=== PATIENT | female | born 1980 | race Caucasian/White ===

== ENCOUNTER 2023-04-27 11:31 | Outpatient (OUT) | payer OTHER, SELFPAY ==
[2023-04-27 11:51] LABS: Basophils Absolute Auto 0.1 10^3/uL (0.0-0.1); Basophils Percent Auto 0.8 % (0.2-2.0); Eosinophils Percent Auto 0.3 % (0.9-7.0); Hematocrit 43.5 % (36.0-48.0); Hemoglobin 14.3 g/dL (12.0-16.0); Immature Granulocytes Abs Auto 0.02 10^3/uL (0.00-0.03); Immature Granulocytes Pct Auto 0.3 % (0.0-0.5); Lymphocytes Absolute Auto 1.5 10^3/uL (1.2-3.8); Mean Corpuscular HGB Conc 32.9 g/dL (29.9-35.2); Mean Corpuscular Volume 94.4 fL (81.0-99.0); Mean Platelet Volume 10.3 fL (9.5-13.5); Monocytes Absolute Auto 0.4 10^3/uL (0.3-0.8); Monocytes Percent Auto 7.4 % (1.7-12.0); Neutrophils Absolute Auto 3.9 10^3/uL (1.4-6.5); Neutrophils Percent Auto 65.2 % (43.0-75.0); Platelet Count 166 10^3/uL (150-450); Red Blood Count 4.61 10^6/uL (4.20-5.40); Red Cell Distribution Width 12.6 % (11.0-15.0); White Blood Count 5.9 10^3/uL (4.0-11.0)
[2023-04-27 12:19] LABS: Estimated Average Glucose 80 mg/dL; Glycohemoglobin A1C 4.4 % (4.5-6.2)
[2023-04-27 13:17] LABS: Alanine Aminotransferase 22 U/L (14-59); Albumin Globulin Ratio 0.9; Albumin Level 3.6 g/dL (3.4-5.0); Alkaline Phosphatase 72 U/L (46-116); Anion Gap 12.8; Aspartate Amino Transferase 16 U/L (15-37); BUN Creatinine Ratio 19.6; Carbon Dioxide 26.7 mmol/L (21.0-32.0); Chloride 103 mmol/L (98-107); Chol HDL Ratio 2.3; Cholesterol 204 mg/dL (<=200); Estimated GFR (African America >60 (>=60); Estimated GFR (Non-African Ame >60 (>=60); Free T4 1.25 ng/dL (0.76-1.46); Globulin 3.9 g/dL; Glucose 106 mg/dL (74-106); HDL Cholesterol 89 mg/dL (40-60); Potassium 4.5 mmol/L (3.5-5.1); Sodium 138 mmol/L (136-145); Thyroid Stimulating Hormone <0.007 uIU/mL (0.358-3.740); Total Protein 7.5 g/dL (6.4-8.2); Triglycerides 74 mg/dL (<=150); VLDL CHOLESTEROL 14.8 mg/dL
== END 2023-04-27 11:32 ==
LOC: LAB 11:32
PROVIDERS: PCP Family Medicine; Visit Provider Family Medicine
DX: Z00.00 Encounter for general adult medical examination without abnormal findings (principal)
CPT/HCPCS: 36415; 80053; 80061; 83036; 84439; 84443; 85025

== ENCOUNTER 2024-04-22 08:16 | Outpatient (OUT) | payer OTHER, SELFPAY ==
[2024-04-22 09:06] LABS: Estimated Average Glucose 103 mg/dL; Glycohemoglobin A1C 5.2 % (4.5-6.2)
[2024-04-22 09:40] LABS: Basophils Percent Auto 0.5 % (0.2-2.0); Eosinophils Absolute Auto 0.2 10^3/uL (0.0-0.7); Eosinophils Percent Auto 3.1 % (0.9-7.0); Hematocrit 39.2 % (36.0-48.0); Hemoglobin 12.8 g/dL (12.0-16.0); Immature Granulocytes Abs Auto 0.01 10^3/uL (0.00-0.03); Immature Granulocytes Pct Auto 0.2 % (0.0-0.5); Lymphocytes Absolute Auto 1.8 10^3/uL (1.2-3.8); Lymphocytes Percent Auto 30.6 % (20.5-60.0); Mean Corpuscular HGB Conc 32.7 g/dL (29.9-35.2); Mean Corpuscular Hemoglobin 29.6 pg (26.7-34.0); Mean Corpuscular Volume 90.7 fL (81.0-99.0); Mean Platelet Volume 11.7 fL (9.5-13.5); Monocytes Absolute Auto 0.5 10^3/uL (0.3-0.8); Monocytes Percent Auto 8.2 % (1.7-12.0); Neutrophils Absolute Auto 3.3 10^3/uL (1.4-6.5); Neutrophils Percent Auto 57.4 % (43.0-75.0); Platelet Count 164 10^3/uL (150-450); Red Blood Count 4.32 10^6/uL (4.20-5.40); Red Cell Distribution Width 12.3 % (11.0-15.0); White Blood Count 5.8 10^3/uL (4.0-11.0)
[2024-04-22 09:42] LABS: Alanine Aminotransferase 33 U/L (14-59); Albumin Level 3.6 g/dL (3.4-5.0); Alkaline Phosphatase 77 U/L (46-116); Anion Gap 15.4; Aspartate Amino Transferase 25 U/L (15-37); BUN Creatinine Ratio 18.2; Bilirubin Total 0.5 mg/dL (0.2-1.0); Calcium 8.1 mg/dL (8.5-10.1); Carbon Dioxide 25.4 mmol/L (21.0-32.0); Chloride 104 mmol/L (98-107); Chol HDL Ratio 2.1; Cholesterol 164 mg/dL (<=200); Estimated GFR (African America >60 (>=60); Estimated GFR (Non-African Ame >60 (>=60); Free T3 4.78 pg/mL (2.18-3.98); Globulin 3.6 g/dL; Glucose 98 mg/dL (74-106); HDL Cholesterol 77 mg/dL (40-60); Potassium 3.8 mmol/L (3.5-5.1); Sodium 141 mmol/L (136-145); Thyroid Stimulating Hormone <0.007 uIU/mL (0.358-3.740); Total Protein 7.2 g/dL (6.4-8.2); Triglycerides 33 mg/dL (<=150); VLDL CHOLESTEROL 6.6 mg/dL
[2024-04-23 13:07] LABS: Insulin 10.2 uIU/mL (2.6-24.9)
== END 2024-04-22 08:17 | disposition home or self-care (01) ==
LOC: LAB 08:18
PROVIDERS: PCP Family Medicine; Visit Provider Family Medicine
DX: Z00.00 Encounter for general adult medical examination without abnormal findings (principal); E78.5 Hyperlipidemia, unspecified; R73.09 Other abnormal glucose; D64.9 Anemia, unspecified
CPT/HCPCS: 36415; 80053; 80061; 83036; 83525; 83540; 84436; 84443; 84481; 85025

== ENCOUNTER 2024-04-28 11:14 | Outpatient (OUT) | payer OTHER, SELFPAY ==
--- NOTE | 2024-04-28 11:17 | MM_ITS ---
Patient Name: KENTON CORLEY MR#: [id number] : 1980 Exam Date: 04/28/2024 Ordering Doctor: DR Cooper Reyes . RADIOLOGY REPORT PROCEDURE: MM TOMOSYNTHESIS SCREENING BI COMPARISON: MG MAMM SCREEN RADHA W CAD, 09/18/2020. INDICATIONS: Screening Calculator Name NCI Breast Cancer Risk Assessment Tool 5 Year Breast Cancer Risk 0.60% Lifetime Breast Cancer Risk 7.00% Personal Breast Cancer No Personal Ovarian Cancer No Treatments None Family Cancers None LOCATION: [facility] BREAST COMPOSITION: The breasts are heterogeneously dense,which may obscure small masses. FINDINGS: DIAGNOSTIC CATEGORY 0--INCOMPLETE: NEED ADDITIONAL IMAGING EVALUATION. Scattered benign-appearing calcifications are present. Scattered benign-appearing lymph nodes are present. RIGHT BREAST: New well-circumscribed oval 1.2 cm nodule is noted in the 12 o'clock mid breast. Spot imaging and ultrasound follow-up is recommended. LEFT BREAST: No significant suspicious finding. RECOMMENDATIONS: ADDITIONAL MAMMOGRAPHIC VIEWS REQUIRED: RIGHT BREAST - spot compression ULTRASOUND: RIGHT BREAST PLEASE NOTE: A NORMAL MAMMOGRAM DOES NOT EXCLUDE THE POSSIBILITY OF BREAST CANCER. A CLINICALLY SUSPICIOUS PALPABLE LUMP SHOULD BE BIOPSIED. Dictated by: Ken Patel MD on 04/28/2024 at 12:32 Approved by: Ken Patel MD on 04/28/2024 at 12:35
--- OUTSIDE RECORDS SUMMARY | 2024-04-28 11:34 | XMS_ITS | CCD ---
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 Role Phone MerlynmarisolSonja piña Unavailable MD Fernando Reyes Primary Care Provider [phone] SRINIVAS Altamirano Attending Provider [phone] LYRIC, DR KING Admitting Unavailable HOY, DR KING Attending Unavailable HOY, DR KING Primary Care Unavailable HOY, DR KING Consulting Unavailable HOY, DR KING Admitting Unavailable HOY, DR KING Attending Unavailable HOY, DR KING Primary Care Unavailable HOY, DR KING Consulting Unavailable HOY, DR KING Admitting Unavailable HOY, DR KING Attending Unavailable HOY, DR KING Primary Care Unavailable HOY, DR KING Consulting Unavailable HOY, DR KING Primary Care Unavailable PAY, DR IQBAL Admitting Unavailable PAY, DR IQBAL Attending Unavailable PAY, DR IQBAL Consulting Unavailable HERMESTRAY Consulting Unavailable NEFCY, JOSELINE Consulting Unavailable HOY, DR KING Primary Care Unavailable PAY, DR IQBAL Admitting Unavailable PAY, DR IQBAL Attending Unavailable DESTINY WILSON Consulting Unavailable LYRIC, DR KING Primary Care Unavailable BRANDIE, DR KENRICK Christensen Admitting Unavailabl e BRANDIE, DR KENRICK Christensen Attending Unavailabl peace MORALES, DR KEY Temple Consulting Unavailable BRANDIE, DR KENRICK Christensen Consulting Unavailabl e HOY, DR KING Admitting Unavailable HOY, DR KING Attending Unavailable HOY, DR KING Primary Care Unavailable HOY, DR KING Admitting Unavailable HOY, DR KING Attending Unavailable HOY, DR KING Primary Care Unavailable HOY, DR KING Admitting Unavailable HOY, DR KING Attending Unavailable HOY, DR KING Primary Care Unavailable HOY, DR KING Consulting Unavailable Janis Altamirano Attending Unavailable Evelia, Janis Admitting Unavailable Fernando Reyes Primary Care Unavailable Janis Altamirano Unavailable SamyRaya leon Unavailable Allergies Allergy Classification Reported Allergen(s) Allergy Type Date of Onset Reaction(s) Facility (1 source) methIMAzole Drug Allergy [facility] Rep[facility] Medications Current Medications Medication Drug Class(es) Dates Sig (Normalized) Sig (Original) methIMAzole (1 source) Thyroid Hormone Synthesis Inhibitor methIMAzole Active methylPREDNISolone 4 mg oral tablet (1 source) Corticosteroid Start: methylPREDNISolone 4 MG as directed Orally daily for 6 days Aug, Active Completed/Discontinued Medications Medication Drug Class(es) Dates Sig (Normalized) Sig (Original) cephalexin 500 mg oral capsule (2 sources) Cephalosporin Antibacterial Start: 12-10-2022 take 1 capsule by mouth every eight hours Cephalexin 500 MG 1 capsule Orally three times a day for 7 days Dec, Not-Taking Metoprolol (3 sources) beta-Adrenergic Urbano Metoprolol Tartrate Not-Taking phenazopyridine hydrochloride 200 mg oral tablet (2 sources) Start: 12-10-2022 take 1 tablet by mouth every eight hours Pyridium 200 MG 1 tablet after meals Orally Three times a day for 2 day(s) Dec, Not-Taking Problems Active Problems Problem Classification Problem Date Documented Da te Episodic/Chronic Acute bronchitis (1 source) Acute bronchitis, unspecified; Translations: [ACUTE BRONCHITIS UNSPECIFIED] Onset: 11-19-2022 Episodic Fever of unknown origin (3 sources) Fever, unspecified; Translations: [FEVER UNSPECIFIED] Onset: 12-11-2022 Episodic Genitourinary symptoms and ill-defined conditions (2 sources) Dysuria; Translations: [Dysuria] Onset: 12-10-2022 Episodic Malaise and fatigue (1 source) Other fatigue; Translations: [OTHER FATIGUE] Onset: 09-30-2022 Episodic Other aftercare (1 source) 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; Translations: [OTH RETIREMENT CURRENT DRUG THERAPY] Onset: 12-14-2022 Episodic Other upper respiratory infections (2 sources) Acute pharyngitis, unspecified; Translations: [Acute laryngitis] Episodic Screening and history of mental health and substance abuse codes (1 source) Personal history of nicotine dependence; Translations: [PERSONAL HISTORY OF NICOTINE DEPEND] Onset: 12-14-2022 Episodic Substance-related disorders (1 source) Nicotine dependence, cigarettes, uncomplicated; Translations: [NICOTINE DEPEND CIGARETTES UNCOMP] Onset: 06-04-2022 Chronic Thyroid disorders (11 sources) Hyperthyroidism; Translations: [Thyrotoxicosis, unspecified without thyrotoxic crisis or storm] Onset: 04-25-2022 Chronic Unclassified (3 sources) CONTACT W/AND (SUSP) EXPOS COVID-19; Translations: [CONTACT W/AND (SUSP) EXPOS COVID-19] Onset: 11-19-2022 Unclassified (1 source) LOW BACK PAIN, UNSPECIFIED; Translations: [LOW BACK PAIN, UNSPECIFIED] Onset: 06-04-2022 Urinary tract infections (2 sources) Urinary tract infection, site not specified; Translations: [Acute cystitis with hematuria] Onset: 12-14-2022 Episodic Past or Other Problems Problem Classification Problem Date Documented Da te Episodic/Chronic Abdominal pain (4 sources) Unspecified abdominal pain; Translations: [UNSPECIFIED ABDOMINAL PAIN] Onset: 07-04-2022 Episodic Deficiency and other anemia (1 source) Anemia, unspecified; Translations: [ANEMIA UNSPECIFIED] Onset: 03-25-2022 Episodic Immunizations and screening for infectious disease (2 sources) Contact with and (suspected) exposure to other viral communicable diseases; Translations: [CONTCT EXPS OTH VIRL COMMUNICABL DZ] Onset: 10-20-2021 Resolved: 10-20-2021 Episodic Nausea and vomiting (1 source) Vomiting, unspecified; Translations: [VOMITING UNSPECIFIED] Onset: 07-10-2022 Episodic Other gastrointestinal disorders (5 sources) Diarrhea, unspecified; Translations: [DIARRHEA UNSPECIFIED] Onset: 06-01-2022 Episodic Other non-traumatic joint disorders (1 source) Pain in left shoulder; Translations: [PAIN IN LEFT SHOULDER] Onset: 06-04-2022 Episodic Other screening for suspected conditions (not mental disorders or infectious disease) (1 source) Abnormal results of thyroid function studies; Translations: [ABNORMAL RESULTS THR FUNCTION STDY] Onset: 06-04-2022 Episodic Residual codes; unclassified (1 source) Acquired absence of both cervix and uterus; Translations: [ACQUIRED ABSENCE BOTH CERVIX AND UTERUS] Onset: 07-10-2022 Episodic Spondylosis; intervertebral disc disorders; other back problems (1 source) Pain in thoracic spine; Translations: [PAIN IN THORACIC SPINE] Onset: 06-04-2022 Episodic Unclassified (1 source) CONTACT W/AND (SUSP) EXPOS COVID-19; Translations: [CONTACT W/AND (SUSP) EXPOS COVID-19] Onset: 11-17-2022 Results Test Name Value Interpretation Reference Range Facility [facility] 09-07-2023 S. pyogenes Org specific cx Ql (Throat) Negative [employer] [facility] Other Quick Strep [employer] Other CBC AUTO DIFFon 12-11-2022 BASO # 0.0 103/ul Normal 0.0-0.1 [facility] Comment on above: Performed By: #### C BC #### [facility] [address] [place] [address] Dr. Daquan Baez Basophils/100 WBC (Bld) 0.2 % Normal 0.2-2.0 [facility] Comment on above: Performed By: #### C BC #### [facility] [address] [place] [address] Dr. Daquan Baez EO # 0.0 103/ul Normal 0.0-0.7 [facility] Comment on above: Performed By: #### C BC #### [facility] [address] [place] [address] Dr. Daquan Baez Eosinophils/100 WBC (Bld) 0.2 % Critically low 0.9-7.0 [facility] Comment on above: Performed By: #### C BC #### [facility] [address] [place] [address] Dr. Daquan Baez Erythrocyte distribution width (RBC) [Ratio] 12.4 % Normal 11.0-15.0 [facility] Comment on above: Performed By: #### C BC #### [facility] [address] [place] [address] Dr. Daquan Baez Hematocrit (Bld) [Volume fraction] 41.4 % Normal 36.0-48.0 [facility] Comment on above: Performed By: #### C BC #### [facility] [address] [address] [address] Daquan Baez Hemoglobin (Bld) [Mass/Vol] 13.4 g/dL Normal 12.0-16.0 [facility] Comment on above: Performed By: #### C BC #### [facility] [address] [address] [address] Daquan Baez IG # 0.05 10e3/ul Critically high 0.00-0.03 [facility] Comment on above: Performed By: #### C BC #### [facility] [address] [place] [address] Dr. Daquan Baez IG % 0.5 % Normal 0.0-0.5 [facility] Comment on above: Performed By: #### C BC #### [facility] [address] [place] [address] Dr. Daquan Baez LYMPH # 1.3 103/ul Normal 1.2-3.8 [facility] Comment on above: Performed By: #### C BC #### [facility] [address] [place] [address] Dr. Daquan Baez Lymphocytes/100 WBC (Bld) 12.9 % Critically low 20.5-60.0 [facility] Comment on above: Performed By: #### C BC #### [facility] [address] [place] [address] Dr. Daquan Baez MANUAL DIFF REQ NO Normal [facility] Comment on above: Performed By: #### C BC #### [facility] [address] [place] [address] Dr. Daquan Baez MCH (RBC) [Entitic mass] 30.2 pg Normal 26.7-34.0 [facility] Comment on above: Performed By: #### C BC #### [facility] [address] [place] [address] Dr. Daquan Baez MCHC (RBC) [Mass/Vol] 32.4 g/dL Normal 29.9-35.2 [facility] Comment on above: Performed By: #### C BC #### [facility] [address] [address] [address] Daquan Baez MCV (RBC) [Entitic vol] 93.2 fL Normal 81.0-99.0 [facility] Comment on above: Performed By: #### C BC #### [facility] [address] [place] [address] Dr. Daquan Baez MONO # 1.0 103/ul Critically high 0.3-0.8 [facility] Comment on above: Performed By: #### C BC #### [facility] [address] [place] [address] Dr. Daquan Baez Monocytes/100 WBC (Bld) 9.9 % Normal 1.7-12.0 [facility] Comment on above: Performed By: #### C BC #### [facility] [address] [place] [address] Dr. Daquan Baez NEUT # 7.5 103/ul Critically high 1.4-6.5 [facility] Comment on above: Performed By: #### C BC #### [facility] [address] [place] [address] Dr. Daquan Baez Neutrophils/100 WBC (Bld) 76.3 % Critically high 43.0-75.0 [facility] Comment on above: Performed By: #### C BC #### [facility] [address] [place] [address] Dr. Daquan Baez Platelet mean volume (Bld) [Entitic vol] 10.4 fL Normal 9.5-13.5 [facility] Comment on above: Performed By: #### C BC #### [facility] [address] [place] [address] Dr. Daquan Baez PLT 169 103/ul Normal 150-450 [facility] Comment on above: Performed By: #### C BC #### [facility] [address] [place] [address] Dr. Daquan Baez RBC 4.44 106/ul Normal 4.20-5.40 [facility] Comment on above: Performed By: #### C BC #### [facility] [address] [place] [address] Dr. Daquan Baez WBC 9.9 103/ul Normal 4.0-11.0 [facility] Comment on above: Performed By: #### C BC #### [facility] [address] [place] [address] Dr. Daquan Baez LACTATE/LACTIC ACIDon 2022 Lactate [Moles/Vol] 1.5 mmol/L Normal 0.4-1.9 [facility] Comment on above: Performed By: #### H STROPN, CMP, TSH #### [facility] [address] [place] [address] Dr. Daquan Baez PROF CHEM 8 (BAS METB)on Anion gap [Moles/Vol] 9.2 mmol/L Normal [facility] Comment on above: Performed By: #### B MP #### [facility] [address] [place] [address] Dr. Daquan Baez Calcium [Mass/Vol] 9.0 mg/dL Normal 8.5-10.1 [facility] Comment on above: Performed By: #### B MP #### [facility] [address] [place] [address] Dr. Daquan Baez Chloride [Moles/Vol] 99 mmol/L Normal 98-107 [facility] Comment on above: Performed By: #### B MP #### [facility] [address] [place] [address] Dr. Daquan Baez CO2 [Moles/Vol] 29.4 mmol/L Normal 21.0-32.0 [facility] Comment on above: Performed By: #### B MP #### [facility] [address] [place] [address] Dr. Daquan Baez Creatinine [Mass/Vol] 0.70 mg/dL Normal 0.55-1.02 [facility] Comment on above: Performed By: #### B MP #### [facility] [address] [place] [address] Dr. Daquan Baez EGFR-AF AUSTRALIAN >60 Normal >=60 [facility] Comment on above: Performed By: #### B MP #### [facility] [address] [address] [address] Daquan Baez EGFR-NON AF AUSTRALIAN >60 Normal >=60 [facility] Comment on above: Performed By: #### B MP #### [facility] [address] [address] [address] Daquan Baez Glucose [Mass/Vol] 176 mg/dL Critically high 74-106 [facility] Comment on above: Performed By: #### B MP #### [facility] [address] [address] [address] Daquan Baez Potassium [Moles/Vol] 3.6 mmol/L Normal 3.5-5.1 [facility] Comment on above: Performed By: #### B MP #### [facility] [address] [address] [address] Daquan Baez Sodium [Moles/Vol] 134 mmol/L Critically low 136-145 Th [facility] Comment on above: Performed By: #### B MP #### [facility] [address] [address] [address] Daquan Baez Urea nitrogen [Mass/Vol] 12.0 mg/dL Normal 7.0-18.0 [facility] Comment on above: Performed By: #### B MP #### [facility] [address] [address] [address] Daquan Baez Urea nitrogen/Creatinine [Mass ratio] 17.1 mg/mg Normal [facility] Comment on above: Performed By: #### B MP #### [facility] [address] [address] [address] Daquan Baez Urinalysis - AUTOMATEDon Appearance (U) cloudy [employer] Other Bilirubin Ql (U) Negative [employer] Other Color (U) dark yellow [employer] Other Glucose Ql (U) Negative [employer] Other Hemoglobin Ql (U) Moderate [employer] Other Ketones Ql (U) Negative [employer] Other Leukocyte esterase Test strip Ql (U) Small [employer] Other Nitrite Ql (U) Positive [employer] Other pH (U) 6.0 [pH] [employer] Other Protein Ql (U) 100 [employer] Other Specific gravity (U) [Rel density] 1.020 [employer] Other Urobilinogen (U) [Mass/Vol] 0.2 mg/dL [employer] Other Urinalysis - AUTOMATED [employer] Other Urine Cultureon 12-10-2022 Urine Culture >100,000 [employer] Other Urine Culture <16 Susceptible [employer] Other Urine Culture <8/4 Susceptible [employer] Other Urine Culture <8 Susceptible [employer] Other Urine Culture <4 Susceptible [employer] Other Urine Culture <2 Susceptible [employer] Other Urine Culture <1 Susceptible [employer] Other Urine Culture <0.25 Susceptible [employer] Other Urine Culture <0.5 Susceptible [employer] Other Urine Culture <32 Susceptible [employer] Other Urine Culture <0.5/9.5 Susceptible [employer] Other Bacteria identified Cx Nom (U) Reason for Exam Dysuria Urine ORGANISM: Escherichia coli (O:ESCCOL) [place] Count >100,000 Aerobic CHUYITA Charge (NMIC56) ------ SUSCEPTIBILITY ----- ORGANISM: O:ESCCOL ANTIBIOTIC INTERPRETATION CHUYITA Amikacin S <16 Amoxacillin/K Clavulanate S <8 Ampicillin S <8 Ampicillin/Sulbacta m S <4 Aztreonam S <4 Cefazolin S <2 Cefepime S <2 Ceftazidime S <1 Ceftazidime/Avibact am S <4 Ceftolozane/Tazobac brown S <2 Ceftriaxone S <1 Cefuroxime S <4 Ciprofloxacin S <0.25 Ertapenem S <0.5 Gentamicin S <2 Levofloxacin S <0.5 Meropenem S <1 Meropenem/Vaborbact am S <2 Nitrofurantoin S <32 Piperacillin/Tazoba ctam S <8 Tetracycline S <4 Tigecycline S <2 Tobramycin S <2 Trimethoprim/Sulfam ethoxazole S <0.5 S = SUSCEPTIBLE I = INTERMEDIATE R = RESISTANT BLANK = DATA NOT AVAILABLE, OR DRUG NOT ADVISABLE OR TESTED R* = RESISTANCE DUE TO EXTENDED SPECTRUM BETA-LACTAMASES ESBL = EXTENDED SPECTRUM BETA-LACTAMASE TFG = THYMIDINE-DEPENDENT STRAIN GLENN = BETA-LACTAMASE POSITIVE IB = INDUCIBLE BETA-LACTAMASE. APPEARS IN PLACE OF 'S' WITH SPECIES KNOWN TO POSSESS INDUCIBLE BETA-LACTAMASES. POTENTIALLY THEY MAY BECOME RESISTANT TO ALL B-LACTAM DRUGS. PERFORMED BY: [facility] [address] [place] [address] PATHOLOGIST CCNP VICTORINA GUILLEN M.D. Normal [facility] Comment on above: Performed By: #### C UU #### [facility] [address] [facility]08 SARS-CoV-2 (COVID-19) RNA KAMALJIT+probe Ql (Unsp spec) Not detected Normal NOT DETECTED [facility] Comment on above: Result Comment: This test is not yet approved or cleared by the [place] FDA. When there are no FDA-approved or cleared tests available, and other criteria are met, FDA can make tests available under an emergency access mechanism called an Emergency Use Authorization (EUA). The EUA for this test is supported by the Invertebrate Paleontologist of Health and Human Service's (HHS's) declaration that circumstances exist to justify the emergency use of in vitro diagnostics for the detection and/or diagnosis of the virus that causes COVID-19. This EUA will remain in effect (meaning this test can be used) for the duration of the COVID-19 declaration justifying emergency of IVDs, unless it is terminated or revoked by FDA (after which the test may no longer be used). When diagnostic testing is negative, the possibility of a false negative should be considered in the context of a patient's recent exposures and the presence of clinical signs and symptoms consistent with SARS-CoV-2. Performed By: #### H ADIS BARR, TSH #### [facility] [address] [place] [address] Dr. Daquan Baez INFLUENZA A AND B [facility] 11-17 [facility] SEE BELOW Normal [facility] Comment on above: Result Comment: Nega tive for Flu A protein angiten. Infection due to Flu A cannot be ruled out. Flu A angiten in the sample may be below the detection limit of the test. Performed By: #### H ADIS BARR, TSH #### [facility] [address] [place] [address] Dr. [facility] Normal [facility] Comment on above: Result Comment: Nega tive for Flu B protein antigen. Infection due to Flu B cannot be ruled out. Flu B antigen in the sample may be below the detection limit of the test. Performed By: #### H STROROBERT, CMP, TSH #### [facility] [address] [place] [address] Dr. Daquan Baez INFLUENZA A AG Negative Normal NEGATIVE SEE COMMENT [facility] Comment on above: Performed By: #### H MOMO CMP, TSH #### [facility] [address] [place] [address] Dr. Daquan Baez INFLUENZA B AG Negative Normal NEGATIVE SEE COMMENT [facility] Comment on above: Performed By: #### H STROPN, CMP, TSH #### [facility] [address] [place] [address] Dr. Daquan Baez CBC AUTO DIFFon 09-28-2022 BASO # 0.0 103/ul Normal 0.0-0.1 [facility] Comment on above: Performed By: #### C BC #### [facility] [address] [place] [address] Dr. Daquan Baez Basophils/100 WBC (Bld) 0.6 % Normal 0.2-2.0 [facility] Comment on above: Performed By: #### C BC #### [facility] [address] [place] [address] Dr. Daquan Baez EO # 0.0 103/ul Normal 0.0-0.7 [facility] Comment on above: Performed By: #### C BC #### [facility] [address] [place] [address] Dr. Daquan Baez Eosinophils/100 WBC (Bld) 0.2 % Critically low 0.9-7.0 [facility] Comment on above: Performed By: #### C BC #### [facility] [address] [place] [address] Dr. Daquan Baez Erythrocyte distribution width (RBC) [Ratio] 12.1 % Normal 11.0-15.0 [facility] Comment on above: Performed By: #### C BC #### [facility] [address] [place] [address] Dr. Daquan Baez Hematocrit (Bld) [Volume fraction] 41.0 % Normal 36.0-48.0 [facility] Comment on above: Performed By: #### C BC #### [facility] [address] [place] [address] Dr. Daquan Baez Hemoglobin (Bld) [Mass/Vol] 13.8 g/dL Normal 12.0-16.0 [facility] Comment on above: Performed By: #### C BC #### [facility] [address] [place] [address] Dr. Daquan Baez IG # 0.03 10e3/ul Normal 0.00-0.03 [facility] Comment on above: Performed By: #### C BC #### [facility] [address] [place] [address] Dr. Daquan Baez IG % 0.6 % Critically high 0.0-0.5 [facility] Comment on above: Performed By: #### C BC #### [facility] [address] [place] [address] Dr. Daquan Baez LYMPH # 1.5 103/ul Normal 1.2-3.8 [facility] Comment on above: Performed By: #### C BC #### [facility] [address] [place] [address] Dr. Daquan Baez Lymphocytes/100 WBC (Bld) 29.5 % Normal 20.5-60.0 [facility] Comment on above: Performed By: #### C BC #### [facility] [address] [place] [address] Dr. Daquan Baez MANUAL DIFF REQ NO Normal [facility] Comment on above: Performed By: #### C BC #### [facility] [address] [place] [address] Dr. Daquan Baez MCH (RBC) [Entitic mass] 30.2 pg Normal 26.7-34.0 [facility] Comment on above: Performed By: #### C BC #### [facility] [address] [place] [address] Dr. Daquan Baez MCHC (RBC) [Mass/Vol] 33.7 g/dL Normal 29.9-35.2 [facility] Comment on above: Performed By: #### C BC #### [facility] [address] [place] [address] Dr. Daquan Baez MCV (RBC) [Entitic vol] 89.7 fL Normal 81.0-99.0 [facility] Comment on above: Performed By: #### C BC #### [facility] [address] [place] [address] Dr. Daquan Baez MONO # 0.6 103/ul Normal 0.3-0.8 [facility] Comment on above: Performed By: #### C BC #### [facility] [address] [place] [address] Dr. Daquan Baez Monocytes/100 WBC (Bld) 12.8 % Critically high 1.7-12.0 [facility] Comment on above: Performed By: #### C BC #### [facility] [address] [place] [address] Dr. aDquan Baez NEUT # 2.8 103/ul Normal 1.4-6.5 [facility] Comment on above: Performed By: #### C BC #### [facility] [address] [place] [address] Dr. Daquan Baez Neutrophils/100 WBC (Bld) 56.3 % Normal 43.0-75.0 [facility] Comment on above: Performed By: #### C BC #### [facility] [address] [place] [address] Dr. Daquan Baez Platelet mean volume (Bld) [Entitic vol] 10.1 fL Normal 9.5-13.5 [facility] Comment on above: Performed By: #### C BC #### [facility] [address] [place] [address] Dr. Daquan Baez PLT 190 103/ul Normal 150-450 [facility] Comment on above: Performed By: #### C BC #### [facility] [address] [place] [address] Dr. Daquan Baez RBC 4.57 106/ul Normal 4.20-5.40 [facility] Comment on above: Performed By: #### C BC #### [facility] [address] [place] [address] Dr. Daquan Baez WBC 5.0 103/ul Normal 4.0-11.0 [facility] Comment on above: Performed By: #### C BC #### [facility] [address] [place] [address] Dr. Daquan Baez FREE T3on 09-28-2022 FREE T3 3.50 pg/mlL Normal 2.18-3.98 [facility] Comment on above: Performed By: #### C BC #### [facility] [address] [place] [address] Dr. Daquan Baez FREE THYROXINE INDEX T7on FTI 3.28 Normal 1.30-4.50 [facility] Comment on above: Performed By: #### C BC #### [facility] [address] [address] [address] Daquan Baez T3U 36.0 % Normal 30.0-39.0 [facility] Comment on above: Performed By: #### C BC #### [facility] [address] [address] [address] Daquan Baez T4 [Mass/Vol] 9.10 ug/dL Normal 4.80-13.90 [facility] Comment on above: Performed By: #### C BC #### [facility] [address] [address] [address] Daquan Baez GLYCOHEMOGLOBIN A1Con 2021 ADA RECOMMENDATION SEE BELOW Normal [facility] Comment on above: Result Comment: ADA RECOMMENDED LIMIT 4.0 - 6.0 ADA THERAPEUTIC TARGET < 7.0 ACTION SUGGESTED > 7.0 Performed By: #### H STROPN, CMP, TSH #### [facility] [address] [address] [address] Daquan Baez Glucose [Mass/Vol] 108 mg/dL Normal [facility] Comment on above: Performed By: #### H STROPN, CMP, TSH #### [facility] [address] [address] [address] Daquan Baez HbA1c (Bld) [Mass fraction] 5.4 % Normal 4.5-6.2 [facility] Comment on above: Performed By: #### H STROPN, CMP, TSH #### [facility] [address] [address] [address] Daquan Baez LIPID PROFILEon 09-28-2022 CHOL-HDL RATIO NORM SEE BELOW Normal [facility] Comment on above: Result Comment: 3.3 - 4.4 LOW RISK 4.4 - 7.1 AVERAGE RISK 7.1 - 11.0 MODERATE RISK >11.0 HIGH RISK Performed By: #### C BC #### [facility] [address] [place] [address] Dr. Daquan Baez Cholesterol [Mass/Vol] 154 mg/dL Normal <=200 [facility] Comment on above: Performed By: #### C BC #### [facility] [address] [address] [address] Daquan Baez Cholesterol in HDL [Mass/Vol] 71 mg/dL Critically high 40-60 [facility] Comment on above: Performed By: #### C BC #### [facility] [address] [address] [address] Daquan Baez Cholesterol in LDL [Mass/Vol] 67.0 mg/dL Normal [facility] Comment on above: Performed By: #### C BC #### [facility] [address] [address] [address] Daquan Baez Cholesterol.total/Ch olesterol in HDL [Mass ratio] 2.2 {ratio} Normal [facility] Comment on above: Performed By: #### C BC #### [facility] [address] [address] [address] Daquan Baez HDL NORMAL > or = 60 mg/dl - LOW CARDIOVASCULAR RISK <40 mg/dl - HIGH CARDIOVASCULAR RISK Normal [facility] Comment on above: Performed By: #### C BC #### [facility] [address] [address] [address] Daquan Baez LDL CALC NORMAL SEE BELOW Normal [facility] Comment on above: Result Comment: <100 mg/dl OPTIMAL 100 - 129 mg/dl NEAR OR ABOVE OPTIMAL 130 - 159 mg/dl BORDERLINE HIGH 160 - 189 mg/dl HIGH >190 mg/dl VERY HIGH Performed By: #### C BC #### [facility] [address] [address] [address] Daquan Baez Triglyceride [Mass/Vol] 80 mg/dL Normal <=150 [facility] Comment on above: Performed By: #### C BC #### [facility] [address] [address] [address] Daquan Baez VLDL CALC 16.0 mg/dL Normal [facility] Comment on above: Performed By: #### C BC #### [facility] [address] [address] [address] Daquan Baez PROF 14(COMP METB)on 022 Albumin [Mass/Vol] 3.7 g/dL Normal 3.4-5.0 [facility] Comment on above: Performed By: #### C MP, LIPID, T7, TSH #### [facility] [address] [address] [address] Daquan Baez Albumin/Globulin [Mass ratio] 1.1 {ratio} Normal [facility] Comment on above: Performed By: #### C MP, LIPID, T7, TSH #### [facility] [address] [place] [address] Dr. Daquan Baez ALP [Catalytic activity/Vol] 80 U/L Normal 46-116 [facility] Comment on above: Performed By: #### C MP, LIPID, T7, TSH #### [facility] [address] [place] [address] Dr. Daquan Baez ALT [Catalytic activity/Vol] 21 U/L Normal 14-59 [facility] Comment on above: Performed By: #### C MP, LIPID, T7, TSH #### [facility] [address] [address] [address] Daquan Baez Anion gap [Moles/Vol] 7.0 mmol/L Normal [facility] Comment on above: Performed By: #### C MP, LIPID, T7, TSH #### [facility] [address] [address] [address] Daquan Baez AST [Catalytic activity/Vol] 14 U/L Critically low 15-37 [facility] Comment on above: Performed By: #### C MP, LIPID, T7, TSH #### [facility] [address] [address] [address] Daquan Baez Bilirubin [Mass/Vol] 0.7 mg/dL Normal 0.2-1.0 [facility] Comment on above: Performed By: #### C MP, LIPID, T7, TSH #### [facility] [address] [address] [address] Daquan Baez Calcium [Mass/Vol] 8.6 mg/dL Normal 8.5-10.1 [facility] Comment on above: Performed By: #### C MP, LIPID, T7, TSH #### [facility] [address] [address] [address] Daquan Baez Chloride [Moles/Vol] 104 mmol/L Normal 98-107 [facility] Comment on above: Performed By: #### C MP, LIPID, T7, TSH #### [facility] [address] [address] [address] Daquan Baez CO2 [Moles/Vol] 30.9 mmol/L Normal 21.0-32.0 [facility] Comment on above: Performed By: #### C MP, LIPID, T7, TSH #### [facility] [address] [place] [address] Dr. Daquan Baez Creatinine [Mass/Vol] 0.45 mg/dL Critically low 0.55-1.02 [facility] Comment on above: Performed By: #### C MP, LIPID, T7, TSH #### [facility] [address] [place] [address] Dr. Daquan Baez EGFR-AF AUSTRALIAN >60 Normal >=60 [facility] Comment on above: Performed By: #### C MP, LIPID, T7, TSH #### [facility] [address] [place] [address] Dr. Daquan Baez EGFR-NON AF AUSTRALIAN >60 Normal >=60 [facility] Comment on above: Performed By: #### C MP, LIPID, T7, TSH #### [facility] [address] [place] [address] Dr. Daquan Baez Globulin (S) [Mass/Vol] 3.5 g/dL Normal [facility] Comment on above: Performed By: #### C MP, LIPID, T7, TSH #### [facility] [address] [place] [address] Dr. Daquan Baez Glucose [Mass/Vol] 99 mg/dL Normal 74-106 [facility] Comment on above: Performed By: #### C MP, LIPID, T7, TSH #### [facility] [address] [place] [address] Dr. Daquan Baez Potassium [Moles/Vol] 3.9 mmol/L Normal 3.5-5.1 [facility] Comment on above: Performed By: #### C MP, LIPID, T7, TSH #### [facility] [address] [address] [address] Daquan Baez Protein [Mass/Vol] 7.2 g/dL Normal 6.4-8.2 [facility] Comment on above: Performed By: #### C MP, LIPID, T7, TSH #### [facility] [address] [address] [address] Daquan Baez Sodium [Moles/Vol] 138 mmol/L Normal 136-145 [facility] Comment on above: Performed By: #### C MP, LIPID, T7, TSH #### [facility] [address] [address] [address] Daquan Baez Urea nitrogen [Mass/Vol] 11.0 mg/dL Normal 7.0-18.0 [facility] Comment on above: Performed By: #### C MP, LIPID, T7, TSH #### [facility] [address] [address] [address] Daquan Baez Urea nitrogen/Creatinine [Mass ratio] 24.4 mg/mg Normal [facility] Comment on above: Performed By: #### C MP, LIPID, T7, TSH #### [facility] [address] [address] [address] Daquan Baez TSHon 09-28-2022 TSH Qn m[IU]/L Critically low 0.358-3.740 [facility] Comment on above: Performed By: #### C BC #### [facility] [address] [address] [address] Daquan Baez AMYLASEon 07-04-2022 Amylase [Catalytic activity/Vol] 38 U/L Normal 25-115 [facility] Comment on above: Performed By: #### H STROPN, CMP, TSH #### [facility] [address] [address] [address] Daquan Baez CBC AUTO DIFFon 07-04-2022 BASO # 0.0 103/ul Normal 0.0-0.1 [facility] Comment on above: Performed By: #### C BC #### [facility] [address] [place] [address] Dr. Daquan Baez Basophils/100 WBC (Bld) 0.4 % Normal 0.2-2.0 [facility] Comment on above: Performed By: #### C BC #### [facility] [address] [place] [address] Dr. Daquan Baez EO # 0.0 103/ul Normal 0.0-0.7 [facility] Comment on above: Performed By: #### C BC #### [facility] [address] [place] [address] Dr. Daquan Baez Eosinophils/100 WBC (Bld) 0.0 % Critically low 0.9-7.0 [facility] Comment on above: Performed By: #### C BC #### [facility] [address] [place] [address] Dr. Daquan Baez Erythrocyte distribution width (RBC) [Ratio] 12.4 % Normal 11.0-15.0 [facility] Comment on above: Performed By: #### C BC #### [facility] [address] [place] [address] Dr. Daquan Baez Hematocrit (Bld) [Volume fraction] 39.4 % Normal 36.0-48.0 [facility] Comment on above: Performed By: #### C BC #### [facility] [address] [place] [address] Dr. Daquan Baez Hemoglobin (Bld) [Mass/Vol] 13.2 g/dL Normal 12.0-16.0 [facility] Comment on above: Performed By: #### C BC #### [facility] [address] [place] [address] Dr. Daquan Baez IG # 0.03 10e3/ul Normal 0.00-0.03 [facility] Comment on above: Performed By: #### C BC #### [facility] [address] [place] [address] Dr. Daquan Baez IG % 0.3 % Normal 0.0-0.5 [facility] Comment on above: Performed By: #### C BC #### [facility] [address] [place] [address] Dr. Daquan Baez LYMPH # 3.9 103/ul Critically high 1.2-3.8 [facility] Comment on above: Performed By: #### C BC #### [facility] [address] [place] [address] Dr. Daquan Baez Lymphocytes/100 WBC (Bld) 40.0 % Normal 20.5-60.0 [facility] Comment on above: Performed By: #### C BC #### [facility] [address] [place] [address] Dr. Daquan Baez MANUAL DIFF REQ NO Normal [facility] Comment on above: Performed By: #### C BC #### [facility] [address] [place] [address] Dr. Daquan Baez MCH (RBC) [Entitic mass] 30.9 pg Normal 26.7-34.0 [facility] Comment on above: Performed By: #### C BC #### [facility] [address] [place] [address] Dr. Daquan Baez MCHC (RBC) [Mass/Vol] 33.5 g/dL Normal 29.9-35.2 [facility] Comment on above: Performed By: #### C BC #### [facility] [address] [place] [address] Dr. Daquan Baez MCV (RBC) [Entitic vol] 92.3 fL Normal 81.0-99.0 [facility] Comment on above: Performed By: #### C BC #### [facility] [address] [place] [address] Dr. Daquan Baez MONO # 0.8 103/ul Normal 0.3-0.8 [facility] Comment on above: Performed By: #### C BC #### [facility] [address] [place] [address] Dr. Daquan Baez Monocytes/100 WBC (Bld) 8.5 % Normal 1.7-12.0 [facility] Comment on above: Performed By: #### C BC #### [facility] [address] [place] [address] Dr. Daquan Baez NEUT # 4.9 103/ul Normal 1.4-6.5 [facility] Comment on above: Performed By: #### C BC #### [facility] [address] [place] [address] Dr. Daquan Baez Neutrophils/100 WBC (Bld) 50.8 % Normal 43.0-75.0 [facility] Comment on above: Performed By: #### C BC #### [facility] [address] [place] [address] Dr. Daquan Baez Platelet mean volume (Bld) [Entitic vol] 10.5 fL Normal 9.5-13.5 [facility] Comment on above: Performed By: #### C BC #### [facility] [address] [place] [address] Dr. Daquan Baez PLT 164 103/ul Normal 150-450 [facility] Comment on above: Performed By: #### C BC #### [facility] [address] [place] [address] Dr. Daquan Baez RBC 4.27 106/ul Normal 4.20-5.40 [facility] Comment on above: Performed By: #### C BC #### [facility] [address] [place] [address] Dr. Daquan Baez WBC 9.7 103/ul Normal 4.0-11.0 [facility] Comment on above: Performed By: #### C BC #### [facility] [address] [place] [address] Dr. Daquan Baez ER URINE PROFILEon 2 Bilirubin Ql (U) Negative Normal NEGATIVE [facility] Comment on above: Performed By: #### E RUR #### [facility] [address] [place] [address] Dr. Daquan Baez Clarity (U) CLEAR Normal CLEAR [facility] Comment on above: Performed By: #### E RUR #### [facility] [address] [place] [address] Dr. Daquan Baez Color (U) LT. YELLOW Normal YELLOW [facility] Comment on above: Performed By: #### E RUR #### [facility] [address] [place] [address] Dr. Daquan SPEARS A micrscopic examination will be performed if indicated. Normal [facility] Comment on above: Performed By: #### E RUR #### [facility] [address] [place] [address] Dr. Daquan Baez Glucose Ql (U) Negative Normal NEGATIVE [facility] Comment on above: Performed By: #### E RUR #### [facility] [address] [place] [address] Dr. Daquan Baez Hemoglobin Ql (U) Negative Normal NEGATIVE [facility] Comment on above: Performed By: #### E RUR #### [facility] [address] [place] [address] Dr. Daquan Baez Ketones Ql (U) Negative Normal NEGATIVE [facility] Comment on above: Performed By: #### E RUR #### [facility] [address] [place] [address] Dr. Daquan Baez LEUKOCYTES Negative Normal NEGATIVE [facility] Comment on above: Performed By: #### E RUR #### [facility] [address] [place] [address] Dr. Daquan Baez Nitrite Ql (U) Negative Normal NEGATIVE [facility] Comment on above: Performed By: #### E RUR #### [facility] [address] [place] [address] Dr. Daquan Baez pH (U) 6.0 [pH] Normal 5-9 [facility] Comment on above: Performed By: #### E RUR #### [facility] [address] [place] [address] Dr. Daquan Baez SPEC GRAVITY <=1.005 Abnormal 1.005-<=1.025 [facility] Comment on above: Performed By: #### E RUR #### [facility] [address] [place] [address] Dr. Daquan Baez UA PROTEIN Negative Normal NEGATIVE/ TRACE [facility] Comment on above: Performed By: #### E RUR #### [facility] [address] [place] [address] Dr. Daquan Baez UR MICRO IND NOT INDICATED Normal [facility] Comment on above: Performed By: #### E RUR #### [facility] [address] [address] [address] Daquan Baez Urobilinogen Qn (U) 0.2 {Lupe'U}/dL Normal 0.2 - 1. 0 [facility] Comment on above: Performed By: #### E RUR #### [facility] [address] [place] [address] Dr. Daquan Baez LACTATE/LACTIC ACIDon 2021 Lactate [Moles/Vol] 0.9 mmol/L Normal 0.4-1.9 [facility] Comment on above: Performed By: #### L ACT #### [facility] [address] [place] [address] Dr. Daquan Baez LIPASEon 07-04-2022 Lipase [Catalytic activity/Vol] 62.0 U/L Critically low 73.0-393.0 [facility] Comment on above: Performed By: #### H STROPN, CMP, TSH #### [facility] [address] [place] [address] Dr. Daquan Baez CBC AUTO DIFFon 06-01-2022 BASO # 0.0 103/ul Normal 0.0-0.1 [facility] Comment on above: Performed By: #### H STROPN, CMP, TSH #### [facility] [address] [place] [address] Dr. Daquan Baez Basophils/100 WBC (Bld) 0.4 % Normal 0.2-2.0 [facility] Comment on above: Performed By: #### H STROPN, CMP, TSH #### [facility] [address] [place] [address] Dr. Daquan Baez EO # 0.0 103/ul Normal 0.0-0.7 [facility] Comment on above: Performed By: #### H STROPN, CMP, TSH #### [facility] [address] [address] [address] Daquan Baez Eosinophils/100 WBC (Bld) 0.0 % Critically low 0.9-7.0 [facility] Comment on above: Performed By: #### H STROPN, CMP, TSH #### [facility] [address] [place] [address] Dr. Daquan Baez Erythrocyte distribution width (RBC) [Ratio] 13.0 % Normal 11.0-15.0 [facility] Comment on above: Performed By: #### H STROPN, CMP, TSH #### [facility] [address] [place] [address] Dr. Daquan Baez Hematocrit (Bld) [Volume fraction] 41.5 % Normal 36.0-48.0 [facility] Comment on above: Performed By: #### H STROPN, CMP, TSH #### [facility] [address] [place] [address] Dr. Daquan Baez Hemoglobin (Bld) [Mass/Vol] 14.0 g/dL Normal 12.0-16.0 [facility] Comment on above: Performed By: #### H STROPN, CMP, TSH #### [facility] [address] [place] [address] Dr. Daquan Baez IG # 0.02 10e3/ul Normal 0.00-0.03 [facility] Comment on above: Performed By: #### H STROPN, CMP, TSH #### [facility] [address] [place] [address] Dr. Daquan Baez IG % 0.3 % Normal 0.0-0.5 [facility] Comment on above: Performed By: #### H STROPN, CMP, TSH #### [facility] [address] [place] [address] Dr. Daquan Baez LYMPH # 1.8 103/ul Normal 1.2-3.8 [facility] Comment on above: Performed By: #### H STROPN, CMP, TSH #### [facility] [address] [address] [address] Daquan Baez Lymphocytes/100 WBC (Bld) 26.0 % Normal 20.5-60.0 [facility] Comment on above: Performed By: #### H STROPN, CMP, TSH #### [facility] [address] [place] [address] Dr. Daquan Baez MANUAL DIFF REQ NO Normal [facility] Comment on above: Performed By: #### H STROPN, CMP, TSH #### [facility] [address] [place] [address] Dr. Daquan Baez MCH (RBC) [Entitic mass] 30.2 pg Normal 26.7-34.0 [facility] Comment on above: Performed By: #### H STROPN, CMP, TSH #### [facility] [address] [place] [address] Dr. Daquan Baez MCHC (RBC) [Mass/Vol] 33.7 g/dL Normal 29.9-35.2 [facility] Comment on above: Performed By: #### H STROPN, CMP, TSH #### [facility] [address] [place] [address] Dr. Daquan Baez MCV (RBC) [Entitic vol] 89.4 fL Normal 81.0-99.0 [facility] Comment on above: Performed By: #### H STROPN, CMP, TSH #### [facility] [address] [place] [address] Dr. Daquan Baez MONO # 0.4 103/ul Normal 0.3-0.8 [facility] Comment on above: Performed By: #### H STROPN, CMP, TSH #### [facility] [address] [place] [address] Dr. Daquan Baez Monocytes/100 WBC (Bld) 6.2 % Normal 1.7-12.0 [facility] Comment on above: Performed By: #### H STROPN, CMP, TSH #### [facility] [address] [place] [address] Dr. Daquan Baez NEUT # 4.7 103/ul Normal 1.4-6.5 [facility] Comment on above: Performed By: #### H STROPN, CMP, TSH #### [facility] [address] [address] [address] Daquan Baez Neutrophils/100 WBC (Bld) 67.1 % Normal 43.0-75.0 [facility] Comment on above: Performed By: #### H STROPN, CMP, TSH #### [facility] [address] [address] [address] Daquan Baez Platelet mean volume (Bld) [Entitic vol] 10.4 fL Normal 9.5-13.5 [facility] Comment on above: Performed By: #### H STROPN, CMP, TSH #### [facility] [address] [place] [address] Dr. Daquan Baez PLT 187 103/ul Normal 150-450 [facility] Comment on above: Performed By: #### H STROPN, CMP, TSH #### [facility] [address] [place] [address] Dr. Daquan Baez RBC 4.64 106/ul Normal 4.20-5.40 [facility] Comment on above: Performed By: #### H STROPN, CMP, TSH #### [facility] [address] [place] [address] Dr. Daquan Baez WBC 7.0 103/ul Normal 4.0-11.0 [facility] Comment on above: Performed By: #### H STROPN, CMP, TSH #### [facility] [address] [place] [address] ABD/PELVIS WO CONon 06-01 CT ABD/PELVIS WO CON EXAMINATION: CT ABD/PELVIS WO CON, 06/01/2022 1:12 PM EDT HISTORY: SHORTNESS OF BREATH . LEFT-SIDED FLANK PAIN. COMPARISON: None. TECHNIQUE: CT scan of the abdomen and pelvis was performed without IV contrast. CT dose reduction technique was used, including Automated Exposure Control. FINDINGS: Visualized lung bases and pleural spaces are clear. A 0.8 cm low-attenuation focus within hepatic segment 4, a 1.7 cm low-attenuation focus within hepatic segment 3, a 1.2 cm low-attenuation focus within hepatic segment 5 and 2 subcentimeter low-attenuation foci within hepatic segment 6 are present, which are not optimally assessed given the lack of intravenous contrast. Allowing for the lack of contrast, the spleen, pancreas and the adrenal glands are unremarkable. No renal or ureteral calculi. Calcified phleboliths are present within the pelvis. A 2 cm cyst within the left adnexa, likely a physiologic left ovarian cyst. Normal appendix. No ascites or focal intraperitoneal fluid collections. A 1.1 cm sclerotic focus within left lateral aspect of T12 vertebral body, indeterminate, likely benign bone island. IMPRESSION: 1. No renal or ureteral calculi. 2. Normal appendix. No inflammatory changes within the abdomen or the pelvis. 3. Multiple low-attenuation foci scattered throughout the right and left lobes of the liver, which are not optimally assessed given the lack of intravenous contrast. These may be secondary to underlying hepatic cysts and/or hemangiomas. 4. Incidental 1.1 cm sclerotic focus within T12 vertebral body, indeterminate, likely a benign bone island. Electronically authenticated by: TRAY MIRZA Date: 2022-06-01 15:08 Normal [facility] ER URINE PROFILEon 2 Bilirubin Ql (U) Negative Normal NEGATIVE [facility] Comment on above: Performed By: #### C BC #### [facility] [address] [place] [address] Dr. Daquan Baez Clarity (U) CLEAR Normal CLEAR [facility] Comment on above: Performed By: #### C BC #### [facility] [address] [place] [address] Dr. Daquan Baez Color (U) LT. YELLOW Normal YELLOW [facility] Comment on above: Performed By: #### C BC #### [facility] [address] [place] [address] Dr. Daquan Baez ERUAHD A micrscopic examination will be performed if indicated. Normal [facility] Comment on above: Performed By: #### C BC #### [facility] [address] [place] [address] Dr. Daquan Baez Glucose Ql (U) Negative Normal NEGATIVE [facility] Comment on above: Performed By: #### C BC #### [facility] [address] [place] [address] Dr. Daquan Baez Hemoglobin Ql (U) TRACE-LYSED Abnormal NEGATIVE [facility] Comment on above: Performed By: #### C BC #### [facility] [address] [place] [address] Dr. Daquan Baez Ketones Ql (U) Negative Normal NEGATIVE [facility] Comment on above: Performed By: #### C BC #### [facility] [address] [place] [address] Dr. Daquan Baez LEUKOCYTES Negative Normal NEGATIVE [facility] Comment on above: Performed By: #### C BC #### [facility] [address] [place] [address] Dr. Daquan Baez Nitrite Ql (U) Negative Normal NEGATIVE [facility] Comment on above: Performed By: #### C BC #### [facility] [address] [place] [address] Dr. Daquan Baez pH (U) 8.0 [pH] Normal 5-9 [facility] Comment on above: Performed By: #### C BC #### [facility] [address] [place] [address] Dr. Daquan Baez SPEC GRAVITY 1.015 Normal 1.005-<=1.025 [facility] Comment on above: Performed By: #### C BC #### [facility] [address] [place] [address] Dr. Daquan Baez UA PROTEIN Negative Normal NEGATIVE/ TRACE [facility] Comment on above: Performed By: #### C BC #### [facility] [address] [place] [address] Dr. Daquan Baez UR MICRO IND INDICATED Normal [facility] Comment on above: Performed By: #### C BC #### [facility] [address] [place] [address] Dr. Daquan Baez Urobilinogen Qn (U) 0.2 {Lupe'U}/dL Normal 0.2 - 1. 0 [facility] Comment on above: Performed By: #### C BC #### [facility] [address] [place] [address] Dr. Daquan Baez FREE T4on 06-01-2022 Free T4 [Mass/Vol] 1.55 ng/dL Critically high 0.76-1.46 [facility] Comment on above: Performed By: #### H STROPN, CMP, TSH #### [facility] [address] [address] [address] Daquan Baez MONOon 06-01-2022 Monocytes (Bld) [#/Vol] Negative Normal NEGATIVE [facility] Comment on above: Performed By: #### M FEDERICO #### [facility] [address] [address] [address] Daquan Baez URon 06-01-2022 , QUAL Negative Normal NEGATIVE [facility] Comment on above: Performed By: #### C BC #### [facility] [address] [place] [address] Dr. Daquan Baez PROF 14(COMP METB)on 022 Albumin [Mass/Vol] 3.9 g/dL Normal 3.4-5.0 [facility] Comment on above: Performed By: #### H STROPN, CMP, TSH #### [facility] [address] [address] [address] Daquan Baez Albumin/Globulin [Mass ratio] 1.2 {ratio} Normal [facility] Comment on above: Performed By: #### H STROPN, CMP, TSH #### [facility] [address] [address] [address] Daquan Baez ALP [Catalytic activity/Vol] 86 U/L Normal 46-116 [facility] Comment on above: Performed By: #### H STROPN, CMP, TSH #### [facility] [address] [address] [address] Daquan Baez ALT [Catalytic activity/Vol] 16 U/L Normal 14-59 [facility] Comment on above: Performed By: #### H STROPN, CMP, TSH #### [facility] [address] [address] [address] Daquan Baez Anion gap [Moles/Vol] 9.8 mmol/L Normal [facility] Comment on above: Performed By: #### H STROPN, CMP, TSH #### [facility] [address] [address] [address] Daquan Baez AST [Catalytic activity/Vol] 11 U/L Critically low 15-37 [facility] Comment on above: Performed By: #### H STROPN, CMP, TSH #### [facility] [address] [address] [address] Daquan Baez Bilirubin [Mass/Vol] 1.0 mg/dL Normal 0.2-1.0 [facility] Comment on above: Performed By: #### H STROPN, CMP, TSH #### [facility] [address] [address] [address] Daquan Baez Calcium [Mass/Vol] 8.8 mg/dL Normal 8.5-10.1 [facility] Comment on above: Performed By: #### H STROPN, CMP, TSH #### [facility] [address] [address] [address] Daquan Baez Chloride [Moles/Vol] 104 mmol/L Normal 98-107 [facility] Comment on above: Performed By: #### H STROPN, CMP, TSH #### [facility] [address] [place] [address] Dr. Daquan Baez CO2 [Moles/Vol] 26.9 mmol/L Normal 21.0-32.0 [facility] Comment on above: Performed By: #### H STROPN, CMP, TSH #### [facility] [address] [address] [address] Daquan Baez Creatinine [Mass/Vol] 0.52 mg/dL Critically low 0.55-1.02 [facility] Comment on above: Performed By: #### H STROPN, CMP, TSH #### [facility] [address] [place] [address] Dr. Daquan Baez EGFR-AF AUSTRALIAN >60 Normal >=60 [facility] Comment on above: Performed By: #### H STROPN, CMP, TSH #### [facility] [address] [place] [address] Dr. Daquan Baez EGFR-NON AF AUSTRALIAN >60 Normal >=60 [facility] Comment on above: Performed By: #### H STROROBERT, CMP, TSH #### [facility] [address] [address] [address] Daquan Baez Globulin (S) [Mass/Vol] 3.3 g/dL Normal [facility] Comment on above: Performed By: #### H STROPN, CMP, TSH #### [facility] [address] [address] [address] Daquan Baez Glucose [Mass/Vol] 100 mg/dL Normal 74-106 [facility] Comment on above: Performed By: #### H STROPN, CMP, TSH #### [facility] [address] [address] [address] Daquan Baez Potassium [Moles/Vol] 3.7 mmol/L Normal 3.5-5.1 [facility] Comment on above: Performed By: #### H STROPN, CMP, TSH #### [facility] [address] [address] [address] Daquan Baez Protein [Mass/Vol] 7.2 g/dL Normal 6.4-8.2 [facility] Comment on above: Performed By: #### H STROROBERT, CMP, TSH #### [facility] [address] [address] [address] Daquan Baez Sodium [Moles/Vol] 137 mmol/L Normal 136-145 [facility] Comment on above: Performed By: #### H STROPN, CMP, TSH #### [facility] [address] [address] [address] Daquan Baez Urea nitrogen [Mass/Vol] 9.0 mg/dL Normal 7.0-18.0 [facility] Comment on above: Performed By: #### H STROPN, CMP, TSH #### [facility] [address] [address] [address] Daquan Baez Urea nitrogen/Creatinine [Mass ratio] 17.3 mg/mg Normal [facility] Comment on above: Performed By: #### H STROPN, CMP, TSH #### [facility] [address] [place] [address] Dr. Daquan Baez TROPONIN, HIGH SENSITIVITYon 06-01-2022 HSTROP <4.0 Normal 4.0-51.3 [facility] Comment on above: Result Comment: CUT- OFF POINTS HAVE BEEN ESTABLISHED BASED ON THE FOURTH UNIVERSAL DEFINITIONS OF MYOCARDIAL INFARCTION. THE UPPER REFERENCE LIMIT (URL) OF TROPONIN, DEFINED THE 99TH PERCENTILE OF cTnI DISTRIBUTION IN A REFERENCE POPULATION, HAS BEEN CONFIRMED THE DECISION THRESHOLD FOR [place] DIAGNOSIS. Performed By: #### H MOMO CMP, TSH #### [facility] [address] [place] [address] Dr. Daquan Baez TSHon 06-01-2022 TSH 0.007 uIU/mL Critically low 0.358-3.740 [facility] Comment on above: Performed By: #### H MOMO CMP, TSH #### [facility] [address] [place] [address] Dr. Daquan Baez URINE MICROSCOPIC ONLYon BACTERIA NONE SEEN Normal NONE SEEN [facility] Comment on above: Performed By: #### C BC #### [facility] [address] [place] [address] Dr. Daquan Baez Bacteria identified Cx Nom (U) NOT INDICATED Normal [facility] Comment on above: Performed By: #### C BC #### [facility] [address] [place] [address] Dr. Daquan Baez CAST NONE SEEN Normal NONE SEEN [facility] Comment on above: Performed By: #### C BC #### [facility] [address] [place] [address] Dr. Daquan Baez Crystals LM Nom (Urine sed) NONE SEEN Normal NONE SEEN [facility] Comment on above: Performed By: #### C BC #### [facility] [address] [place] [address] Dr. Daquan Baez Epithelial cells LM Ql (Urine sed) RARE Normal NONE SEEN /RARE [facility] Comment on above: Performed By: #### C BC #### [facility] [address] [place] [address] Dr. Daquan Baez MUCOUS NONE SEEN Normal NONE SEEN [facility] Comment on above: Performed By: #### C BC #### [facility] [address] [place] [address] Dr. Daquan Baez RBC 0-2 Normal 0-2 [facility] Comment on above: Performed By: #### C BC #### [facility] [address] [place] [address] Dr. Daquan Baez WBC NONE SEEN Normal NONE SEEN [facility] Comment on above: Performed By: #### C BC #### [facility] [address] [place] [address] Dr. Daquan Baez XR CHEST 1 Von 06-01-2022 XR CHEST 1 V EXAM: XR CHEST 1 V at 1358 hours HISTORY: SHORTNESS OF BREATH COMPARISON: None. TECHNIQUE: AP upright portable chest x-ray FINDINGS: The heart is not enlarged and the vasculature is not distended. No acute infiltrate, effusion or pneumothorax is identified. Very small amount of pleural and parenchymal scarring is seen at the right apex. The osseous structures are grossly intact. IMPRESSION: No acute infiltrate or evidence of cardiac decompensation. Comparison with a previous study would be helpful in determining the chronicity of these findings. Electronically authenticated by: JOSELINE HANSEN Date: 2022-06-01 14:49 Normal [facility] FREE T3on 04-25-2022 FREE T3 4.36 pg/mlL Critically high 2.18-3.98 [facility] Comment on above: Performed By: #### C BC #### [facility] [address] [place] [address] Dr. Daquan Baez T4on 04-25-2022 T4 [Mass/Vol] 11.60 ug/dL Normal 4.80-13.90 [facility] Comment on above: Performed By: #### C BC #### [facility] [address] [place] [address] Dr. Daquan Baez TSHon 04-25-2022 TSH 0.002 uIU/mL Critically low 0.358-3.740 [facility] Comment on above: Performed By: #### H STROPN, CMP, TSH #### [facility] [address] [place] [address] Dr. Daquan Baez CBC AUTO DIFFon 03-21-2022 BASO # 0.0 103/ul Normal 0.0-0.1 [facility] Comment on above: Performed By: #### H STROPN, CMP, TSH #### [facility] [address] [address] [address] Daquan Baez Basophils/100 WBC (Bld) 0.7 % Normal 0.2-2.0 [facility] Comment on above: Performed By: #### H STROPN, CMP, TSH #### [facility] [address] [address] [address] Daquan Baez EO # 0.4 103/ul Normal 0.0-0.7 [facility] Comment on above: Performed By: #### H STROPN, CMP, TSH #### [facility] [address] [address] [address] Daquan Baez Eosinophils/100 WBC (Bld) 6.5 % Normal 0.9-7.0 [facility] Comment on above: Performed By: #### H STROPN, CMP, TSH #### [facility] [address] [address] [address] Daquan Baez Erythrocyte distribution width (RBC) [Ratio] 12.7 % Normal 11.0-15.0 [facility] Comment on above: Performed By: #### H STROPN, CMP, TSH #### [facility] [address] [address] [address] Daquan Baez Hematocrit (Bld) [Volume fraction] 42.1 % Normal 36.0-48.0 [facility] Comment on above: Performed By: #### H STROPN, CMP, TSH #### [facility] [address] [address] [address] Daquan Baez Hemoglobin (Bld) [Mass/Vol] 13.8 g/dL Normal 12.0-16.0 [facility] Comment on above: Performed By: #### H STROPN, CMP, TSH #### [facility] [address] [address] [address] Daquan Baez IG # 0.00 10e3/ul Normal 0.00-0.03 [facility] Comment on above: Performed By: #### H STROPN, CMP, TSH #### [facility] [address] [place] [address] Dr. Daquan Baez IG % 0.0 % Normal 0.0-0.5 [facility] Comment on above: Performed By: #### H STROPN, CMP, TSH #### [facility] [address] [place] [address] Dr. Daquan Baez LYMPH # 2.0 103/ul Normal 1.2-3.8 [facility] Comment on above: Performed By: #### H STROPN, CMP, TSH #### [facility] [address] [place] [address] Dr. Daquan Baez Lymphocytes/100 WBC (Bld) 36.7 % Normal 20.5-60.0 [facility] Comment on above: Performed By: #### H STROPN, CMP, TSH #### [facility] [address] [place] [address] Dr. Daquan Baez MANUAL DIFF REQ NO Normal [facility] Comment on above: Performed By: #### H STROPN, CMP, TSH #### [facility] [address] [place] [address] Dr. Daquan Baez MCH (RBC) [Entitic mass] 29.4 pg Normal 26.7-34.0 [facility] Comment on above: Performed By: #### H STROPN, CMP, TSH #### [facility] [address] [place] [address] Dr. Daquan Baez MCHC (RBC) [Mass/Vol] 32.8 g/dL Normal 29.9-35.2 [facility] Comment on above: Performed By: #### H STROPN, CMP, TSH #### [facility] [address] [place] [address] Dr. Daquan Baez MCV (RBC) [Entitic vol] 89.6 fL Normal 81.0-99.0 [facility] Comment on above: Performed By: #### H STROPN, CMP, TSH #### [facility] [address] [address] [address] Daquan Baez MONO # 0.5 103/ul Normal 0.3-0.8 [facility] Comment on above: Performed By: #### H STROPN, CMP, TSH #### [facility] [address] [place] [address] Dr. Daquan Baez Monocytes/100 WBC (Bld) 8.7 % Normal 1.7-12.0 [facility] Comment on above: Performed By: #### H STROPN, CMP, TSH #### [facility] [address] [place] [address] Dr. Daquan Baez NEUT # 2.6 103/ul Normal 1.4-6.5 [facility] Comment on above: Performed By: #### H STROPN, CMP, TSH #### [facility] [address] [place] [address] Dr. Daquan Baez Neutrophils/100 WBC (Bld) 47.4 % Normal 43.0-75.0 [facility] Comment on above: Performed By: #### H STROPN, CMP, TSH #### [facility] [address] [place] [address] Dr. Daquan Baez Platelet mean volume (Bld) [Entitic vol] 10.0 fL Normal 9.5-13.5 [facility] Comment on above: Performed By: #### H STROPN, CMP, TSH #### [facility] [address] [place] [address] Dr. Daquan Baez PLT 165 103/ul Normal 150-450 [facility] Comment on above: Performed By: #### H STROPN, CMP, TSH #### [facility] [address] [place] [address] Dr. Daquan Baez RBC 4.70 106/ul Normal 4.20-5.40 [facility] Comment on above: Performed By: #### H STROPN, CMP, TSH #### [facility] [address] [place] [address] Dr. Daquan Baez WBC 5.4 103/ul Normal 4.0-11.0 [facility] Comment on above: Performed By: #### H STROPN, CMP, TSH #### [facility] [address] [address] [address] Daquan Baez FREE THYROXINE INDEX T7on FTI 7.74 Critically high 1.30-4.50 [facility] Comment on above: Performed By: #### H STROPN, CMP, TSH #### [facility] [address] [address] [address] Daquan Baez T3U 44.0 % Critically high 30.0-39.0 [facility] Comment on above: Performed By: #### H STROPN, CMP, TSH #### [facility] [address] [place] [address] Dr. Daquan Baez T4 [Mass/Vol] 17.60 ug/dL Critically high 4.80-13.90 [facility] Comment on above: Performed By: #### H STROPN, CMP, TSH #### [facility] [address] [address] [address] Daquan Baez IRONon 03-21-2022 Iron [Mass/Vol] 69.0 ug/dL Normal 50.0-170.0 [facility] Comment on above: Performed By: #### H STROPN, CMP, TSH #### [facility] [address] [place] [address] Dr. Daquan Baez PROF 14(COMP METB)on 022 Albumin [Mass/Vol] 3.6 g/dL Normal 3.4-5.0 [facility] Comment on above: Performed By: #### H STROPN, CMP, TSH #### [facility] [address] [place] [address] Dr. Daquan Baez Albumin/Globulin [Mass ratio] 1.0 {ratio} Normal [facility] Comment on above: Performed By: #### H STROPN, CMP, TSH #### [facility] [address] [place] [address] Dr. Daquan Baez ALP [Catalytic activity/Vol] 86 U/L Normal 46-116 [facility] Comment on above: Performed By: #### H STROPN, CMP, TSH #### [facility] [address] [address] [address] Daquan Baez ALT [Catalytic activity/Vol] 28 U/L Normal 14-59 [facility] Comment on above: Performed By: #### H STROPN, CMP, TSH #### [facility] [address] [address] [address] Daquan Baez Anion gap [Moles/Vol] 12.1 mmol/L Normal [facility] Comment on above: Performed By: #### H STROPN, CMP, TSH #### [facility] [address] [address] [address] Daquan Baez AST [Catalytic activity/Vol] 18 U/L Normal 15-37 [facility] Comment on above: Performed By: #### H STROPN, CMP, TSH #### [facility] [address] [address] [address] Daquan Baez Bilirubin [Mass/Vol] 0.6 mg/dL Normal 0.2-1.0 [facility] Comment on above: Performed By: #### H STROPN, CMP, TSH #### [facility] [address] [address] [address] Daquan Baez Calcium [Mass/Vol] 9.0 mg/dL Normal 8.5-10.1 [facility] Comment on above: Performed By: #### H STROPN, CMP, TSH #### [facility] [address] [address] [address] Daquan Baez Chloride [Moles/Vol] 104 mmol/L Normal 98-107 [facility] Comment on above: Performed By: #### H STROPN, CMP, TSH #### [facility] [address] [address] [address] Daquan Baez CO2 [Moles/Vol] 26.4 mmol/L Normal 21.0-32.0 [facility] Comment on above: Performed By: #### H STROPN, CMP, TSH #### [facility] [address] [address] [address] Daquan Baez Creatinine [Mass/Vol] 0.43 mg/dL Critically low 0.55-1.02 [facility] Comment on above: Performed By: #### H STROPN, CMP, TSH #### [facility] [address] [address] [address] Daquan Baez EGFR-AF AUSTRALIAN >60 Normal >=60 [facility] Comment on above: Performed By: #### H STROPN, CMP, TSH #### [facility] [address] [address] [address] Daquan Baez EGFR-NON AF AUSTRALIAN >60 Normal >=60 [facility] Comment on above: Performed By: #### H STROPN, CMP, TSH #### [facility] [address] [address] [address] Daquan Baez Globulin (S) [Mass/Vol] 3.7 g/dL Normal [facility] Comment on above: Performed By: #### H STROPN, CMP, TSH #### [facility] [address] [address] [address] Daquan Baez Glucose [Mass/Vol] 103 mg/dL Normal 74-106 [facility] Comment on above: Performed By: #### H STROPN, CMP, TSH #### [facility] [address] [address] [address] Daquan Baez Potassium [Moles/Vol] 4.5 mmol/L Normal 3.5-5.1 [facility] Comment on above: Performed By: #### H STROPN, CMP, TSH #### [facility] [address] [address] [address] Daquan Baez Protein [Mass/Vol] 7.3 g/dL Normal 6.4-8.2 [facility] Comment on above: Performed By: #### H STROPN, CMP, TSH #### [facility] [address] [place] [address] Dr. Daquan Baez Sodium [Moles/Vol] 138 mmol/L Normal 136-145 [facility] Comment on above: Performed By: #### H STROPN, CMP, TSH #### [facility] [address] [address] [address] Daquan Baez Urea nitrogen [Mass/Vol] 18.0 mg/dL Normal 7.0-18.0 [facility] Comment on above: Performed By: #### H STROROBERT, CMP, TSH #### [facility] [address] [place] [address] Dr. Daquan Baez Urea nitrogen/Creatinine [Mass ratio] 41.9 mg/mg Normal [facility] Comment on above: Performed By: #### H MOMO, CMP, TSH #### [facility] [address] [place] [address] Dr. Daquan Baez TSHon 03-21-2022 TSH Qn m[IU]/L Critically low 0.358-3.740 [facility] Comment on above: Performed By: #### H MOMO CMP, TSH #### [facility] [address] [place] [address] Dr. Daquan Baez TSH RANGE SEE BELOW Normal [facility] Comment on above: Result Comment: <0.3 4 UIU/ml HYPERTHYROID 0.34-5.60 UIU/ml EUTHYROID >5.60 UIU/ml HYPOTHYROID Performed By: #### H MOMO, CMP, TSH #### [facility] [address] [place] [address] Dr. Daquan Baez COVID Quick Testingon 2020 Result Negative [employer] Other T3 Freeon 09-10-2019 Free T3 [Mass/Vol] 9.8 pg/mL High 2.0-4.4 [facility] Comment on above: Result Comment: Perf ormed at: [facility] [address] [place], [place] [id number] PhD Becky Santos Performed By: #### 2 [id number] #### [facility] [address] [place] [id number] Thyroid Perox.tpo Abon 09-10 TPO Ab Qn 212 International_Unit/ mL High 0-34 [facility] Comment on above: Result Comment: Perf ormed at: [facility] [place] [address] [place], [place] [id number] PhD Becky Santos Performed By: #### 2 248529, 36022243, 8105952, 3303807, 9800817 #### [facility] [address] [place] [address] Coding Summary.on 09-07-2019 Coding Summary. CODING DATE: 09/07/2019 FINAL [facility] STATUS: Home (Routine DC) PAYOR: Commercial Insurance ADMIT DX: REASON FOR VISIT DX: R53.83 Other fatigue FINAL DX: PRINCIPAL: R53.83 Other fatigue SECONDARY: E05.90 Thyrotoxicosis, unspecified without thyrotoxic crisis or storm R00.2 Palpitations PROCEDURES DOCTOR NAME DATE NOTE: The code number assigned matches the documented diagnosis and / or procedure in the patient's chart. However, the narrative phrase printed from the coding software may appear abbreviated, or result in slightly different terminology. Coded By: Mone Alegria CphT Date Saved: 09/07/2019 10:48 am Normal [facility] Auto Diffon 09-06-2019 Basophils/100 WBC (Bld) 0.1 % Normal 0.0-2.0 [facility] Comment on above: Order Comment: Order Added by Discern Expert. Performed By: #### 2 769450, 3077864, 3844737, 79194670, 2316393, 4810257, 67409940, 4024675 #### [facility] [address] [place] [address] Basophils/Leukocytes Auto (Bld) [Pure # fraction] 0.0 E9/L Normal 0.0-0.2 [facility] Comment on above: Order Comment: Order Added by Discern Expert. Performed By: #### 2 879182, 7573341, 5376478, 91554235, 2498439, 4640282, 21066620, 4760015 #### [facility] [address] [place] [address] Eosinophils/100 WBC (Bld) 0.0 % Normal 0.0-8.0 [facility] Comment on above: Order Comment: Order Added by Discern Expert. Performed By: #### 2 414122, 3651018, 4808190, 40786459, 4326074, 3604665, 41729287, 7701480 #### [facility] [address] [place] [address] Eosinophils/Leukocyt es Auto (Bld) [Pure # fraction] 0.0 E9/L Normal 0.0-0.5 [facility] Comment on above: Order Comment: Order Added by Discern Expert. Performed By: #### 2 540430, 4200484, 4972083, 28896093, 8689984, 4660367, 02522260, 5321649 #### [facility] [address] [place] [address] Lymphocytes/100 WBC (Bld) 43.3 % Normal 14.0-50.0 [facility] Comment on above: Order Comment: Order Added by Discern Expert. Performed By: #### 2 237677, 9198724, 0136206, 98850339, 7955617, 6703360, 81008886, 7348398 #### [facility] [address] [place] [address] Lymphocytes/Leukocyt es Auto (Bld) [Pure # fraction] 2.4 E9/L Normal 1.0-4.0 [facility] Comment on above: Order Comment: Order Added by Anh Expert. Performed By: #### 2 170675, 9919069, 8819207, 04954613, 2887821, 0590355, 20791761, 5348731 #### [facility] [address] [place] [address] Monocytes/100 WBC (Bld) 9.6 % Normal 4.0-14.0 [facility] Comment on above: Order Comment: Order Added by Discern Expert. Performed By: #### 2 115188, 2686977, 2318850, 83706774, 3914319, 9672845, 56469333, 0817279 #### [facility] [address] [place] [address] Monocytes/Leukocytes Auto (Bld) [Pure # fraction] 0.5 E9/L Normal 0.2-1.0 [facility] Comment on above: Order Comment: Order Added by Discern Expert. Performed By: #### 2 414199, 2608851, 2796502, 52775797, 4366338, 7441650, 39247231, 1132111 #### [facility] [address] [place] [address] Neutrophils/100 WBC (Bld) 47.0 % Normal 36.0-75.0 [facility] Comment on above: Order Comment: Order Added by Discern Expert. Performed By: #### 2 391104, 8957095, 5912575, 37991367, 6792506, 8568038, 35949373, 4446244 #### [facility] [address] [place] [address] Neutrophils/Leukocyt es Auto (Bld) [Pure # fraction] 2.7 E9/L Normal 2.0-7.5 [facility] Comment on above: Order Comment: Order Added by Discern Expert. Performed By: #### 2 573964, 8673231, 2680581, 68719236, 0762693, 3149758, 55032312, 6415941 #### [facility] [address] [place] [address] CBC w/ Auto Diffon 10-30-201 9 Erythrocyte distribution width (RBC) [Ratio] 12.7 % Normal 10.9-14.2 [facility] Comment on above: Performed By: #### 2 399290, 8123312, 5735743, 72838482, 9893595, 4894010, 54916291, 9873620 #### [facility] [address] [place] [address] Hematocrit (Bld) [Volume fraction] 38.7 % Normal 34.0-46.0 [facility] Comment on above: Performed By: #### 2 926441, 6582126, 3741428, 79662926, 2366466, 4043383, 00155256, 9192427 #### [facility] [address] [place] [address] Hemoglobin (Bld) [Mass/Vol] 13.4 g/dL Normal 12.0-16.0 [facility] Comment on above: Performed By: #### 2 733357, 0509140, 5892589, 24965185, 9860606, 4089650, 08135920, 1829368 #### [facility] [address] [place] [address] MCH (RBC) [Entitic mass] 29.5 pg Normal 27.0-34.0 [facility] Comment on above: Performed By: #### 2 168286, 4871793, 3272593, 50107083, 5155859, 8646331, 47060987, 4298841 #### [facility] [address] [place] [address] MCHC (RBC) [Mass/Vol] 34.6 g/dL Normal 31.4-36.0 [facility] Comment on above: Performed By: #### 2 841434, 4776601, 3264281, 68504219, 8288139, 7654325, 65219394, 6353234 #### [facility] [address] [place] [address] MCV (RBC) [Entitic vol] 85.4 fL Normal 80.0-100.0 [facility] Comment on above: Performed By: #### 2 166925, 4036657, 2957376, 04138087, 6767491, 5964670, 74768110, 7302306 #### [facility] [address] [place] [address] Platelet mean volume (Bld) [Entitic vol] 8.3 fL Normal 6.4-10.8 [facility] Comment on above: Performed By: #### 2 681324, 6371553, 9003249, 62898091, 8131102, 7818997, 86660395, 4500871 #### [facility] [address] [place] [address] Platelets (Bld) [#/Vol] 192.0 E9/L Normal 150.0-500.0 [facility] Comment on above: Performed By: #### 2 149724, 9536042, 4092399, 85806707, 1829337, 6293519, 00709163, 0137614 #### [facility] [address] [place] [address] RBC (Bld) [#/Vol] 4.5 E12/L Normal 4.3-5.9 [facility] Comment on above: Performed By: #### 2 480916, 4053532, 1206656, 48732529, 1034735, 2739974, 80711193, 7353855 #### [facility] [address] [place] [address] WBC corrected for nucl RBC Auto (Bld) [#/Vol] 5.6 E9/L Normal 4.0-11.0 [facility] Comment on above: Performed By: #### 2 544773, 1226371, 9434849, 58179882, 0823821, 1749432, 28293995, 4529686 #### [facility] [address] [place] [address] CMPon 09-06-2019 Albumin [Mass/Vol] 3.5 g/dL Normal 3.3-5.0 [facility] Comment on above: Performed By: #### 2 514748, 8473975, 9632234, 66096818, 4095369, 9202767, 33847908, 6352122 #### [facility] [address] [place] [address] Albumin [Mass/Vol] 1.1 g/dL Normal 1.1-2.2 [facility] Comment on above: Performed By: #### 2 118580, 8786844, 9720751, 52499970, 5866752, 2092892, 35730552, 7544900 #### [facility] [address] [place] [address] ALP [Catalytic activity/Vol] 91 Int._Unit/L Normal 21-98 [facility] Comment on above: Performed By: #### 2 349353, 8679409, 1328149, 64450793, 3716982, 9628171, 51233571, 4621497 #### [facility] [address] [place] [address] ALT No additional P-5'-P [Catalytic activity/Vol] 40 Int._Unit/L Normal 6-46 [facility] Comment on above: Performed By: #### 2 078200, 2222537, 4242001, 85830040, 9887518, 1678327, 90079243, 1185525 #### [facility] [address] [place] [address] Anion gap [Moles/Vol] 11 mmol/L Normal 6-16 [facility] Comment on above: Performed By: #### 2 819556, 6928012, 8199678, 81387065, 1711730, 8488925, 34178687, 0085998 #### [facility] [address] [place] [address]909 AST [Catalytic activity/Vol] 48 Int._Unit/L High 5-43 [facility] Comment on above: Performed By: #### 2 019405, 8361258, 3555895, 45990618, 5453930, 9564959, 89460317, 5415229 #### [facility] [address] [place] [address] Bilirubin [Mass/Vol] 0.7 mg/dL Normal 0.0-1.1 [facility] Comment on above: Performed By: #### 2 325217, 4781326, 5468806, 98125079, 9015063, 9477564, 60365451, 9811333 #### [facility] [address] [place] [address] Calcium [Mass/Vol] 9.1 mg/dL Normal 8.9-11.1 [facility] Comment on above: Performed By: #### 2 685411, 4208923, 5641072, 64459391, 6291025, 0561725, 87896202, 1744463 #### [facility] [address] [place] [address] Chloride [Moles/Vol] 103 mmol/L Normal 101-111 [facility] Comment on above: Performed By: #### 2 893896, 5593753, 9981975, 32176779, 9142181, 1079826, 66799630, 1723735 #### [facility] [address] [place] [address] CO2 [Moles/Vol] 28 mmol/L Normal 21-31 [facility] Comment on above: Performed By: #### 2 506851, 5359006, 0193958, 59615228, 3107985, 0613508, 10207307, 7386068 #### [facility] [address] [place] [address] Creatinine [Mass/Vol] 0.4 mg/dL Low 0.5-1.3 [facility] Comment on above: Performed By: #### 2 249976, 2057982, 6639886, 01073071, 0759701, 6439954, 82835255, 1067687 #### [facility] [address] [place] [address] Globulin (S) [Mass/Vol] 3.2 g/dL Normal 1.4-4.0 [facility] Comment on above: Performed By: #### 2 110183, 3926474, 9892882, 61777645, 9502629, 2748635, 78362182, 1396425 #### [facility] [address] [place] [address] Glucose [Mass/Vol] 99 mg/dL Normal 55-199 [facility] Comment on above: Result Comment: If t his glucose result represents a fasting glucose, interpretation should refer to the following reference range: 55-99 mg/dL Performed By: #### 2 420524, 8888858, 5019521, 26469504, 6467259, 6495729, 80792884, 2577860 #### [facility] [address] [place] [address] Potassium [Moles/Vol] 3.1 mmol/L Low 3.5-5.3 [facility] Comment on above: Performed By: #### 2 515817, 3406670, 8351154, 32999926, 3720020, 7984471, 05770123, 8624953 #### [facility] [address] [place] [address] Protein [Mass/Vol] 6.7 g/dL Normal 6.0-7.8 [facility] Comment on above: Performed By: #### 2 327118, 6758678, 0623102, 99157369, 0656784, 2605311, 64168950, 3347311 #### [facility] [address] [place] [address] Sodium [Moles/Vol] 139 mmol/L Normal 135-145 [facility] Comment on above: Performed By: #### 2 559721, 1493355, 3985441, 62753026, 3948865, 7195769, 50917700, 8690265 #### [facility] [address] [place] [address] Urea nitrogen [Mass/Vol] 14 mg/dL Normal 5-21 [facility] Comment on above: Performed By: #### 2 591995, 0083020, 1463987, 44947329, 5981061, 0661054, 98834391, 4948353 #### [facility] [address] [place] [address] Urea nitrogen/Creatinine [Mass ratio] 35 No Units High 10-20 [facility] Comment on above: Performed By: #### 2 563493, 7780421, 3914912, 19331493, 1655430, 7620257, 99947736, 4867281 #### [facility] [address] [place] [address] Free T4on 09-06-2019 Free T4 [Mass/Vol] 3.68 ng/dL High 0.58-1.64 [facility] Comment on above: Performed By: #### 2 834495, 49502938, 2604561, 6375199, 9019404 #### [facility] [address] [place] [address] TSHon 09-06-2019 TSH Qn m[IU]/L Low 0.34-5.60 [facility] Comment on above: Performed By: #### 2 049702, 36781907, 2546975, 0765807, 1706833 #### [facility] [address] [place] [address] eGFRon 09-06-2019 GFR/1.73 sq M predicted among blacks MDRD (S/P/Bld) [Vol rate/Area] mL/min/{1.73_m2} Normal >=59 [facility] Comment on above: Order Comment: Order added by Discern Expert. Result Comment: eGFR is race adjusted. AA=. Performed By: #### 2 671599, 4841819, 2769597, 46240849, 3270865, 7243706, 17899069, 0701905 #### [facility] [address] [place] [address] GFR/1.73 sq M predicted among non-blacks MDRD (S/P/Bld) [Vol rate/Area] mL/min/{1.73_m2} Normal >=59 [facility] Comment on above: Order Comment: Order added by Discern Expert. Result Comment: Architecture Manager jacob kidney disease could be indicated at eGFR's of less than 60 mL/min/1.73m2. Kidney failure is indicated at less than 15 mL/min/1.73m2. Performed By: #### 2 983228, 7823748, 1659174, 87484281, 5144219, 5148044, 10213637, 7338222 #### [facility] [address] [place] [address] Coding Summary.on 08-03-2019 Coding Summary. 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 However, the narrative phrase printed from the coding software may appear abbreviated, or result in slightly different terminology. Coded By: Mone Alegria CphT Date Saved: 08/03/2019 12:04 pm Normal [facility] T3 Freeon 07-28-2019 Free T3 [Mass/Vol] 14.7 pg/mL High 2.0-4.4 [facility] Comment on above: Result Comment: Perf ormed at: [facility] [address] [id number] PhD Becky Santos Performed By: #### 2 939107, 73387145, 5087688, 3131359, 7244432 #### [facility] [address] [place] [address] CMPon 07-27-2019 Albumin [Mass/Vol] 1.4 g/dL Normal 1.1-2.2 [facility] Comment on above: Performed By: #### 2 724342, 03453055, 4927407, 9989833, 7714423 #### [facility] [address] [place] [address] Albumin [Mass/Vol] 4.0 g/dL Normal 3.3-5.0 [facility] Comment on above: Performed By: #### 2 023454, 21139546, 2177824, 1072113, 2790779 #### [facility] [address] [place] [address] ALP [Catalytic activity/Vol] 105 Int._Unit/L High 21-98 [facility] Comment on above: Performed By: #### 2 059790, 70145042, 1148405, 1690414, 7309842 #### [facility] [address] [place] [address] ALT No additional P-5'-P [Catalytic activity/Vol] 23 Int._Unit/L Normal 6-46 [facility] Comment on above: Performed By: #### 2 773857, 16485543, 8605324, 1431961, 5346643 #### [facility] [address] [place] [address] Anion gap [Moles/Vol] 14 mmol/L Normal 6-16 [facility] Comment on above: Performed By: #### 2 852766, 44786700, 4782007, 1093998, 6711620 #### [facility] [address] [place] [address] AST [Catalytic activity/Vol] 19 Int._Unit/L Normal 5-43 [facility] Comment on above: Performed By: #### 2 005851, 20923303, 6033962, 8786544, 0486965 #### [facility] [address] [place] [address] Bilirubin [Mass/Vol] 1.2 mg/dL High 0.0-1.1 [facility] Comment on above: Performed By: #### 2 261580, 67598310, 5655304, 4416663, 3593265 #### [facility] [address] [place] [address] Calcium [Mass/Vol] 9.0 mg/dL Normal 8.9-11.1 [facility] Comment on above: Performed By: #### 2 365487, 34693534, 1384945, 1937031, 8560645 #### [facility] [address] [place] [address] Chloride [Moles/Vol] 103 mmol/L Normal 101-111 [facility] Comment on above: Performed By: #### 2 241059, 92518035, 8376248, 2516292, 7080663 #### [facility] [address] [place] [address] CO2 [Moles/Vol] 23 mmol/L Normal 21-31 [facility] Comment on above: Performed By: #### 2 013149, 84275246, 9784445, 6910896, 7310146 #### [facility] [address] [place] [address] Creatinine [Mass/Vol] 0.5 mg/dL Normal 0.5-1.3 [facility] Comment on above: Performed By: #### 2 380976, 78059635, 0561816, 2087173, 2874977 #### [facility] [address] [place] [address] Globulin (S) [Mass/Vol] 2.8 g/dL Normal 1.4-4.0 [facility] Comment on above: Performed By: #### 2 972218, 34965353, 9419608, 5424239, 4257537 #### [facility] [address] [place] [address] Glucose [Mass/Vol] 100 mg/dL Normal 55-199 [facility] Comment on above: Result Comment: If t his glucose result represents a fasting glucose, interpretation should refer to the following reference range: 55-99 mg/dL Performed By: #### 2 777327, 39319958, 5992026, 9241962, 6223775 #### [facility] [address] [place] [address] Potassium [Moles/Vol] 3.9 mmol/L Normal 3.5-5.3 [facility] Comment on above: Performed By: #### 2 628094, 42829613, 1942607, 7049462, 2281749 #### [facility] [address] [place] [address] Protein [Mass/Vol] 6.8 g/dL Normal 6.0-7.8 [facility] Comment on above: Performed By: #### 2 951942, 02443408, 7872195, 4684423, 8188146 #### [facility] [address] [place] [address] Sodium [Moles/Vol] 136 mmol/L Normal 135-145 [facility] Comment on above: Performed By: #### 2 721908, 15442393, 8503553, 3014436, 0341423 #### [facility] [address] [place] [address] Urea nitrogen [Mass/Vol] 15 mg/dL Normal 5-21 [facility] Comment on above: Performed By: #### 2 630946, 60374803, 8005844, 8489944, 4915705 #### [facility] [address] [place] [address] Urea nitrogen/Creatinine [Mass ratio] 30 No Units High 10-20 [facility] Comment on above: Performed By: #### 2 401609, 04256517, 8652240, 5894449, 5858173 #### [facility] [address] [place] [address] Free T4on 07-27-2019 Free T4 [Mass/Vol] 4.27 ng/dL High 0.58-1.64 [facility] Comment on above: Performed By: #### 2 398889, 08251092, 9856747, 5460311, 7247226 #### [facility] [address] [place] [address] TSHon 07-27-2019 TSH Qn m[IU]/L Low 0.34-5.60 [facility] Comment on above: Performed By: #### 2 232823, 87363973, 5515737, 3411316, 7751879 #### [facility] [address] [place] [address] eGFRon 07-27-2019 GFR/1.73 sq M predicted among blacks MDRD (S/P/Bld) [Vol rate/Area] mL/min/{1.73_m2} Normal >=59 [facility] Comment on above: Order Comment: Order added by Discern Expert. Result Comment: eGFR is race adjusted. AA=. Performed By: #### 2 667177, 54255427, 6488083, 6116295, 5869847 #### [facility] [address] [place] [address] GFR/1.73 sq M predicted among non-blacks MDRD (S/P/Bld) [Vol rate/Area] mL/min/{1.73_m2} Normal >=59 [facility] Comment on above: Order Comment: Order added by Discern Expert. Result Comment: Architecture Manager jacob kidney disease could be indicated at eGFR's of less than 60 mL/min/1.73m2. Kidney failure is indicated at less than 15 mL/min/1.73m2. Performed By: #### 2 253324, 73043422, 9391103, 6470554, 7895805 #### [facility] [address] [place] [address] Vital Signs Date Time Vital Sign Value Performing Clinician Facility 09-07-2023 15:40-0400 Body height 170.18 cm Raya Francis Other [facility] 09-07-2023 15:40-0400 Body mass index (BMI) [Ratio] 26.12 kg/m2 Raya Francis Other [facility] Other 09-07-2023 15:40-0400 Body temperature 98.6 [degF] Raya Francis Other [facility] Other 09-07-2023 15:40-0400 Body weight 75.66 kg Raya Francis Other [facility] Other 09-07-2023 15:40-0400 Diastolic blood pressure 84 mm[Hg] Raya Francis Other [facility] Other 09-07-2023 15:40-0400 Respiratory rate 18 /min Raya Francis Other [facility] Other 09-07-2023 15:40-0400 SaO2% (BldA) [Mass fraction] 95 % Raya Penny Other [facility] Other 09-07-2023 15:40-0400 Systolic blood pressure 122 mm[Hg] Raya Penny Other [facility] Other 12-10-2022 09:55-0500 Body height 170.18 cm Janis Sheppardault Other [facility] Other 12-10-2022 09:55-0500 Body mass index (BMI) [Ratio] 25.06 kg/m2 Janis Sheppardault Other [facility] Other 12-10-2022 09:55-0500 Body temperature 98.3 [degF] Janis Evelia Other [facility] Other 12-10-2022 09:55-0500 Body weight 72.58 kg Janis Sheppardault Other [facility] Other 12-10-2022 09:55-0500 Respiratory rate 18 /min Janis Sheppardault Other [facility] Other 10-20-2021 17:00-0500 Body height 170.18 cm Sonja Ginty Other [facility] Other 10-20-2021 17:00-0500 Body mass index (BMI) [Ratio] 24.27 kg/m2 Sonja Ginty Other [facility] Other 10-20-2021 17:00-0500 Body temperature 96.8 [degF] Sonja Ginty Other [facility] Other 10-20-2021 17:00-0500 Body weight 70.31 kg Sonja Reddy Other [facility] Other 10-20-2021 17:00-0500 SaO2% (BldA) [Mass fraction] 97 % Sonja Reddy Other [facility] Other Encounters Encounter Date Encounter Type Care Provider Facility Start: 09-07-2023 End: 09-07-2023 ambulatory Raya Francis Other [facility] Other Start: 09-07-2023 Office outpatient vi sit 15 minutes Raya Francis [facility] Start: 12-11-2022 End: 12-11-[address] FERNANDO REYES Facility:[facility] Start: 12-10-2022 Office outpatient vi sit 15 minutes Janis Altamirano [facility] [facility] Start: 12-10-2022 End: 12-10-2022 ambulatory MD Fernando Reyes Work Phone: [facility] Work Phone: Start: 12-10-2022 End: 12-10-2022 Departed Referred MD Fernando Reyes Work Phone: [facility] [place] Work Phone: Start: 11-17-2022 End: 11-17-[address] FERNANDO REYES Facility:[facility] Start: 11-09-[address] FERNANDO REYES Facility :[facility] Start: 09-30-2022 Encounter for genera l adult medical examination without abnormal findings DR FERNANDO REYES [facility] Start: 09-28-2022 End: 09-29-[address] FERNANDO REYES Facility:[facility] Start: 09-28-2022 End: 09-29-2022 Encounter for general adult medical examination without abnormal findings DR FERNANDO REYES Facility:[facility] Start: 07-04-2022 End: 07-04-[address] FERNANDO REYES Facility:[facility] Start: 06-11-[address] FERNANDO REYES Facility :[facility] Start: 06-01-2022 End: 06-01-[address] FERNANDO REYES Facility:[facility] Start: 04-25-2022 End: 04-26-[address] FERNANDO REYES Facility:[facility] Start: 03-21-2022 End: 03-22-[address] FERNANDO REYES Facility:[facility] Start: 10-20-2021 End: 10-20-2021 ambulatory Sonja Reddy Other [facility] Other Start: 10-20-2021 Office outpatient vi sit 15 minutes Sonja Reddy [facility] Procedures Date Procedure Procedure Detail Performing Clinician Start: 12-10-2022 Piperacillin/tazobactam Janis Altamirano Other Plan of Treatment Date Care Activity Detail Author Start: 12-10-2022 Bacteria identified in Urine by Culture [facility] Payers Date Payer Category Payer Self-pay [id number] 1980 Unknown [id number] 1979 Unknown [id number] 12.24.84 [id number] 1979 Unknown [id number] ..[id number] 0.1.954774.3.579.2.593 1979 Unknown [id number] ..[id number] 0.1.449659.3.579.2.59 1979 Unknown [id number] ..[id number] 0.1.682625.3.579.2.59 1979 Unknown [id number] ..[id number] 0.1.558693.3.579.2.593 1979 Unknown [id number] ..[id number] 0.1.473723.3.579.2.593 1979 Unknown [id number] 2.16.84 0.1.697959.3.579.2.593 1979 Unknown [id number] 2.16.84 [id number] 1960 Self-pay [id number] 1959 Unknown [id number] 2.16. [id number] 1959 Unknown [id number] Unknown [id number] 2.16.8 [id number] Unknown [id number] 2.16 .[id number] Social History Date Type Detail Facility Unknown if ever smoked [facility] Other Sex Assigned At Sex Assigned At Bir th [facility] Other Start: 1980 Sex Assigned At Female F [facility] Evaluation note 09-07-2023 Note Date & Type Note Facility 09-07-2023 Evaluation note Encounter Date Diagnosis Assessment Notes Aug, Sore throat (ICD-10 - J02.9) Aug, Laryngitis (ICD-10 - J04.0) Symptoms of laryngitis are most often caused by viruses. Salt water gargles may help with discomfort. Also my do warm tea with honey. Start with NSAIDs and take three times per day. will send in steroid and if need will take medications as directed. Follow up with PCP if symptoms persist or worsen. Patient verbalized understanding and agreement with treatment plan. [facility] Other Evaluation note 12-10-2022 Note Date & Type Note Facility 12-10-2022 Evaluation note Encounter Date Diagnosis Assessment Notes Dec, Dysuria (ICD-10 - R30.0) Urinary tract infection material was printed Dec, Acute cystitis with hematuria (ICD-10 - N30.01) Take medication as directed. Urine analysis shows abnormalities today in office. Urine culture will be sent to lab. Will call with results if resistance present to antibiotic. Increase fluid intake. Follow hygiene guidelines such as wiping front to back, avoid using perfumed lotions, bath beads, bubble bath. Prevention tips inlcude urinating after sexual intercourse. Follow up with primary care provider or claims representative if no improvement of symptoms. [facility] Other Evaluation note 10-20-2021 Note Date & Type Note Facility 10-20-2021 Evaluation note Encounter Date Diagnosis Assessment Notes Oct, Contact with and (suspected) exposure to other viral communicable diseases (ICD-10 - Z20.828) Advised patient that COVID antigen test was negative today. Advised that with symptoms just starting yesterday that would not be accurate since symptoms have not been going on for at least 48-72 hours. Advised patient to call PCP in AM to obtain COVID PCR test. Advised to quarantine until results of test are known. Supportive care as directed, increase fluids and rest, Tylenol/Motrin as directed, OTC cough/cold remedies as directed on packaging, cool mist humidifier, throat lozenges. Discussed infection control practices such as good hand washing and mask wearing. Patient to follow up with PCP if sx persist or worsen despite treatment. Immediate eval for SOB, difficulty, chest pain, fevers that do not break with antipyretic or any other concerning symptoms as reviewed on patient education handout. Patient verbalizes understanding and is agreeable to treatment plan. Patient left in stable condition Oct, Other Additional time spent conducting pre-visit phone call, screening for symptoms, instructions on social distancing, application and removal of PPE, and cleaning of examination room, equipment and supplies was preformed. Patient education given for testing methodology and results. Patient care instructions given in writting by [facility] document [facility] Other Evaluation note Note Date & Type Note Facility Evaluation note No assessment information availa [facility] Work Phone: History general Narrative - Reported Note Date & Type Note Facility History general Narrative - Reported Type Medical History HYPERTHYROID Medical History GRAVE'S DISEASE Surgical History LT LEG, CIRCULATION Surgical History ORAL SURGERY-WISDOM TEETH Surgical History RT HAND SURGERY Surgical History hysterectomy Surgical History bladder surgery Hospitalization History CH[facility] X'S 2 [facility] Other Summary Purpose Family History No Family History Records FoundNo Family History Records FoundNo Family History Records Found Advance Directives Advance Directive Response Recorded Date/ Time Advance Directives No September 3:06pm Chief Complaint and Reason for Visit Chief Complaint Dysuria Additional Source Comments INFORMATION SOURCE (unrecogn ized section and content) DATE CREATED AUTHOR 09/15/2019 Leo Delong [facility] DATE CREATED AUTHOR AUTHOR'S ORGANIZ ATION 12/14/2022 [facility] DATE CREATED AUTHOR AUTHOR'S ORGANIZ ATION 12/23/2022 [facility] REASON FOR VISIT (unrecogniz ed section and content) #29 BLACK TERRAINE, H/A, B/A , FATIGUE, SORE THROATUTI SXSore throat, laryngitis Care Teams (unrecognized sec tion and content) Team Status: Inactive Member Role Status Dates Fernando Reyes MD Primary Care Provider Active SRINIVAS Bowie Attending Provider Active Team Status: Active Member Role Status Dates Fernando Reyes MD Primary Care Provider Active Goals (unrecognized section and content) Goals may be documented in a n alternate section FOR RECORDS PERTAINING TO PATIENTS WHO ARE OR HAVE BEEN ENROLLED IN A CHEMICAL DEPENDENCY/SUBSTANCEABUSE PROGRAM, SOME INFORMATION MAY BE OMITTED. This clinical summary was aggregated from multiple sources. Caution should be exercised in using it in the provision of clinical care. This summary normalizes information from multiple sources, and as a consequence, information in this document may materially change the coding, format and clinical context of patient data. In addition, data may be omitted in some cases. CLINICAL DECISIONS SHOULD BE BASED ON THE PRIMARY CLINICAL RECORDS. [employer] [facility]. provides no warranty or guarantee of the accuracy or completeness of information in this document.
== END 2024-04-28 11:15 | disposition home or self-care (01) ==
LOC: MAMMO 11:14
PROVIDERS: PCP Family Medicine; Visit Provider Family Medicine
DX: Z12.31 Encounter for screening mammogram for malignant neoplasm of breast (principal); N63.15 Unspecified lump in the right breast, overlapping quadrants
CPT/HCPCS: 77063; 77067

== ENCOUNTER 2024-05-29 12:58 | Outpatient (OUT) | payer OTHER, SELFPAY ==
--- NOTE | 2024-05-29 13:02 | US_ITS ---
Patient Name: KENTON CORLEY MR#: [id number] : 1980 Exam Date: 05/29/2024 Ordering Doctor: DR Cooper Reyes . RADIOLOGY REPORT PROCEDURE: MM DIAGNOSTIC MAMMO UNILAT RT, 05/29/2024, 13:08 US BREAST RT LIMITED, 05/29/2024, 13:16 COMPARISON: MM TOMOSYNTHESIS SCREENING BI, 04/28/2024. INDICATIONS: Abnormal Mammogram Calculator Name NCI Breast Cancer Risk Assessment Tool 5 Year Breast Cancer Risk 0.60% Lifetime Breast Cancer Risk 7.00% Personal Breast Cancer No Personal Ovarian Cancer No Treatments None Family Cancers None LOCATION: [facility] BREAST COMPOSITION: The breasts are heterogeneously dense,which may obscure small masses. FINDINGS: DIAGNOSTIC CATEGORY 2--BENIGN FINDING: Spot imaging demonstrates a persistent 1.1 x 1.0 x 0.8 cm well-circumscribed nodule upper outer quadrant of the right anterior breast. Ultrasound demonstrates at the 1 o'clock position and 0.8 x 0.4 x 0.7 cm area of anechoic echogenicity with an imperceptible wall and increased acoustic through transmission consistent with a simple cyst. This lesion appears smaller by ultrasound than my mammography but is in a similar location. No further evaluation is required RECOMMENDATIONS: ROUTINE MAMMOGRAM AND CLINICAL EVALUATION IN 12 MONTHS. PLEASE NOTE: A NORMAL MAMMOGRAM DOES NOT EXCLUDE THE POSSIBILITY OF BREAST CANCER. A CLINICALLY SUSPICIOUS PALPABLE LUMP SHOULD BE BIOPSIED. Dictated by: Ken Patel MD on 05/29/2024 at 13:27 Approved by: Ken Patel MD on 05/29/2024 at 13:29
== END 2024-05-29 12:59 | disposition home or self-care (01) ==
LOC: MAMMO 12:58
PROVIDERS: PCP Family Medicine; Visit Provider Family Medicine
DX: R92.8 Other abnormal and inconclusive findings on diagnostic imaging of breast (principal); N63.11 Unspecified lump in the right breast, upper outer quadrant
CPT/HCPCS: 76642; 77065

== ENCOUNTER 2025-04-30 08:30 | Outpatient (OUT) | payer OTHER, SELFPAY ==
[2025-04-30 09:19] LABS: Estimated Average Glucose 108 mg/dL; Glycohemoglobin A1C 5.4 % (4.5-6.2)
[2025-04-30 09:35] LABS: Alanine Aminotransferase 36 U/L (14-59); Albumin Globulin Ratio 1.2; Albumin Level 3.8 g/dL (3.4-5.0); Alkaline Phosphatase 94 U/L (46-116); Aspartate Amino Transferase 22 U/L (15-37); BUN Creatinine Ratio 17.7; Basophils Absolute Auto 0.1 10^3/uL (0.0-0.1); Basophils Percent Auto 0.9 % (0.2-2.0); Bilirubin Total 0.7 mg/dL (0.2-1.0); Calcium 8.5 mg/dL (8.5-10.1); Carbon Dioxide 29.8 mmol/L (21.0-32.0); Chloride 104 mmol/L (98-107); Chol HDL Ratio 1.7; Cholesterol 169 mg/dL (<=200); Eosinophils Absolute Auto 0.1 10^3/uL (0.0-0.7); Estimated GFR (African America >60 (>=60 mL/min/1.73m^2); Estimated GFR (Non-African Ame >60 (>=60 mL/min/1.73m^2); Free T3 3.32 pg/mL (2.18-3.98); Globulin 3.3 g/dL; Glucose 102 mg/dL (74-106); HDL Cholesterol 102 mg/dL (40-60); Hematocrit 41.8 % (36.0-48.0); Hemoglobin 14.3 g/dL (12.0-16.0); Immature Granulocytes Abs Auto 0.01 10^3/uL (0.00-0.03); Immature Granulocytes Pct Auto 0.2 % (0.0-0.5); Lymphocytes Absolute Auto 1.7 10^3/uL (1.2-3.8); Lymphocytes Percent Auto 29.1 % (20.5-60.0); Mean Corpuscular HGB Conc 34.2 g/dL (29.9-35.2); Mean Corpuscular Volume 90.5 fL (81.0-99.0); Mean Platelet Volume 10.7 fL (9.5-13.5); Monocytes Absolute Auto 0.5 10^3/uL (0.3-0.8); Monocytes Percent Auto 8.3 % (1.7-12.0); Neutrophils Absolute Auto 3.6 10^3/uL (1.4-6.5); Neutrophils Percent Auto 60.5 % (43.0-75.0); Platelet Count 173 10^3/uL (150-450); Potassium 3.8 mmol/L (3.5-5.1); Red Blood Count 4.62 10^6/uL (4.20-5.40); Red Cell Distribution Width 12.6 % (11.0-15.0); Sodium 141 mmol/L (136-145); Thyroid Stimulating Hormone <0.007 uIU/mL (0.358-3.740); Total Protein 7.1 g/dL (6.4-8.2); Triglycerides 41 mg/dL (<=150); VLDL CHOLESTEROL 8.2 mg/dL; White Blood Count 5.9 10^3/uL (4.0-11.0)
[2025-05-01 04:14] LABS: FSH 34.4 mIU/mL (.)
[2025-05-01 05:07] LABS: Insulin 10.7 uIU/mL (2.6-24.9)
== END 2025-04-30 08:31 | disposition home or self-care (01) ==
LOC: LAB 08:32
PROVIDERS: PCP Family Medicine; Visit Provider Family Medicine
DX: Z00.00 Encounter for general adult medical examination without abnormal findings (principal)
CPT/HCPCS: 36415; 80053; 80061; 82306; 83001; 83036; 83525; 83540; 84436; 84443; 84481; 85025